=== PATIENT | female | born 1945 | race African-American/Black ===

== ENCOUNTER 2019-06-19 15:32 | Inpatient (IN) ==
[2019-06-19 15:42] VITALS: BMI 29.0
--- NOTE | 2019-06-19 16:00 | DR.SOBA ---
HPI - Time Seen Time seen: 15:50 - Primary Care Physician Primary Care Physician: VERNON - HPI Comment HPI Comment: Patient has has fever and cough x 5 days. PCP called in [facility] and patient went by [facility] to have carrillo virus test done(pending results). Patient was feeling worse so came to get checked. - Complaints Chief Complaint:: PT STATED SHE HAD BEEN HAVING FEVER SHORTNESS OF BREATH. HAS BEEN TESTED FOR COVID 19 AND IS WAITING FOR RESULTS AND AND HAS BEEN TRESTED FOR PNEUMONIA. 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 - Family History History of Family Medical Conditions: Yes Family Medical History: Diabetes Mellitus, Cancer, Coronary Artery Disease, He art Failure, Hypertension - Social History Does patient currently use any type of tobacco product: No Have you used tobacco products in the last 12 months: No Type of Tobacco Use: None Does any household member use tobacco: No Alcohol Use: None Do you use any recreational Drugs:: No Lives With: Alone Lives Where: Home - infectious screening In the last 2 months have you had wt loss of >10#?: NO Have you had fever, night sweats or hemotysis?: No Have you traveled outside the country in the last 6 months?: No Isolation: Standard ROS - Review of Systems Constitutional: Fever Eyes: No Symptoms Reported ENTM: No Symptoms Reported Respiratoy: Dry Cough Cardiovascular: No Symptoms Reported Gastrointestinal/Abdominal: No Symptoms Reported Genitourinary: No Symptoms Reported Neurological: No Symptoms Reported Musculoskeletal: No Symptoms Reported Integumentary: No Symptoms Reported Hematologic/Lymphatic: No Symptoms Reported Endocrine: No Symptoms Reported Psychiatric: No Symptoms Reported All Other Systems: Reviewed and Negative PE - General Limitations: No Limitations General Appearance: Alert - Head Head Exam: Normal Inspection - Eyes Eye exam: Normal Appearance, EOMI - ENT ENT Exam: Normal Exam, Normal Oropharynx - Neck Neck Exam: Normal Inspection, Full ROM, Trachea Midline - Chest Chest Inspection: Normal Inspection - Respiratory Respiratory Exam: Normal Lung Sounds Bilat Respiratory Exam: Bilateral Clear to Auscultation - Cardiovascular Cardiovascular Exam: Tachycardia - Abdominal Exam Abdominal Exam: Normal Inspection, Normal Bowel Sounds - Extremities Extremities Exam: Normal Inspection, Full ROM - Back Back Exam: Normal Inspection - Neurologic Neurological Exam: Alert, Oriented X3, CN II-XII Intact - Psychiatric Psychiatric Exam: Anxious - Skin Skin Exam: Intact, Normal Color - Vital Signs Vitals: Temperature 103.0 F Pulse Rate [Left Radial] 118 Pulse Rate 110 Respiratory Rate 15 Blood Pressure [Left Arm] 164/77 Blood Pressure 140/100 O2 Sat by Pulse Oximetry 97 Course - Treatment Treatment: 172: case discussed with DR. Perea will admit patient to ICU for pneumonia ROR - Labs Reviewed Result Diagrams: 06/19/19 16:20 06/19/19 16:20 - EKG Rate: 110 Tavernier: LAD Rhythm: ST Block: None Hypertrophy: LVH ST: Nonsp - Labs Reviewed Laboratory: WBC 4.0 X10^3/uL (3.6-10.0) 06/19/19 16:20 RBC 6.19 X10^6/uL (3.5-5.4) H 06/19/19 16:20 Hgb 13.9 g/dL (12.0-16.0) 06/19/19 16:20 Hct 43.8 % (36.0-47.0) 06/19/19 16:20 MCV 70.7 fL (80.0-100.0) L 06/19/19 16:20 MCH 22.4 pg (27.0-34.0) L 06/19/19 16:20 MCHC 31.6 g/dL (33.0-35.0) L 06/19/19 16:20 RDW 15.8 % (11.6-16.5) 06/19/19 16:20 Plt Count 80 X10^3/uL (150.0-450.0) L 06/19/19 16:20 Plt Count Comment Decreased (ADEQUATE) A 06/19/19 16:20 MPV 9.4 fL (7.4-11.0) 06/19/19 16:20 Neut % (Auto) 82.1 % (42.0-75.0) H 06/19/19 16:20 Lymph % (Auto) 11.0 % (21.0-51.0) L 06/19/19 16:20 Randall % (Auto) 6.5 % (0.0-13.0) 06/19/19 16:20 Eos % (Auto) 0.0 % (0.9-2.9) L 06/19/19 16:20 Baso % (Auto) 0.4 % (0.2-1.0) 06/19/19 16:20 Neut # (Auto) 3.3 x10^3/uL (2.2-4.8) 06/19/19 16:20 Lymph # (Auto) 0.4 X10^3/uL (1.3-2.9) L 06/19/19 16:20 Randall # (Auto) 0.3 x10^3/uL (0.3-0.8) 06/19/19 16:20 Eos # (Auto) 0.0 x10^3/uL (0.0-0.2) 06/19/19 16:20 Baso # (Auto) 0.0 X10^3/uL (0.0-0.1) 06/19/19 16:20 Absolute Nucleated RBC 0.0 /100WBC 06/19/19 16:20 Giant Platelets Few 06/19/19 16:20 Plt Morphology Comment Abnormal (NORMAL) A 06/19/19 16:20 RBC Morphology Abnormal (NORMAL) A 06/19/19 16:20 Hypochromasia 1+ A 06/19/19 16:20 Microcytosis Slight A 06/19/19 16:20 Sodium 134 mmol/L (136-145) L 06/19/19 16:20 Corrected Sodium 137 mmol/L (136-145) 06/19/19 16:20 Potassium 3.9 mmol/L (3.5-5.1) 06/19/19 16:20 Chloride 98 mmol/L (98-107) 06/19/19 16:20 Carbon Dioxide 25.8 mmol/L (21-32) 06/19/19 16:20 BUN 10 mg/dL (7-18) 06/19/19 16:20 Creatinine 1.19 mg/dL (0.55-1.02) H 06/19/19 16:20 Est GFR (MDRD) Af Amer 57 (>60) L 06/19/19 16:20 Est GFR (MDRD) Non-Af 47 (>60) L 06/19/19 16:20 Glucose 225 mg/dL (65-99) H 06/19/19 16:20 Lactic Acid 3.7 mmol/L (0.4-2.0) H 06/19/19 16:20 Calcium 8.7 mg/dL (8.5-10.1) 06/19/19 16:20 Corrected Calcium TNP 06/19/19 16:20 Total Bilirubin 0.50 mg/dL (0.2-1.0) 06/19/19 16:20 AST 52 Units/L (15-37) H 06/19/19 16:20 ALT 48 Units/L (12-78) 06/19/19 16:20 Alkaline Phosphatase 82 Units/L (46-116) 06/19/19 16:20 Creatine Kinase 88 Units/L (26-192) 06/19/19 16:20 CK-MB (CK-2) < 1.0 ng/mL (0-4.0) 06/19/19 16:20 CK/CKMB % Calc 1.1 % (<4) 06/19/19 16:20 Troponin I < 0.02 ng/mL (0-1.5) 06/19/19 16:20 Total Protein 7.9 g/dL (6.4-8.2) 06/19/19 16:20 Albumin 3.4 g/dL (3.4-5.0) 06/19/19 16:20 Globulin 4.5 g/dL (2.5-4.5) 06/19/19 16:20 Albumin/Globulin Ratio 0.8 Ratio (1.1-2.1) L 06/19/19 16:20 Specimen Type Clean catch urine 06/19/19 16:09 Urine Color Yellow (YELLOW) 06/19/19 16:09 Urine Appearance Hazy (CLEAR) 06/19/19 16:09 Urine pH 5.0 (5.0 - 8.0) 06/19/19 16:09 Ur Specific [place] 1.025 (1.000-1.030) 06/19/19 16:09 Urine Protein 4+ (NEGATIVE) 06/19/19 16:09 Urine Glucose (UA) 3+ (NEGATIVE) 06/19/19 16:09 Urine Ketones 1+ (NEGATIVE) 06/19/19 16:09 Urine Occult Blood 2+ (NEGATIVE) 06/19/19 16:09 Urine Nitrite Negative (NEGATIVE) 06/19/19 16:09 Urine Bilirubin Negative (NEGATIVE) 06/19/19 16:09 Urine Urobilinogen 1+ (NORMAL) 06/19/19 16:09 Ur Leukocyte Esterase 1+ (NEGATIVE) 06/19/19 16:09 Urine RBC 0-2 /HPF (0-3) 06/19/19 16:09 Urine WBC 0-2 /HPF (0-5) 06/19/19 16:09 Ur Squamous Epith Cells Moderate /HPF (NEGATIVE) 06/19/19 16:09 Amorphous Sediment 1+ /HPF (NEGATIVE) 06/19/19 16:09 Urine Bacteria Trace /HPF (NEGATIVE) 06/19/19 16:09 Hyaline Casts Moderate /LPF (NEGATIVE) 06/19/19 16:09 Granular Casts Few /LPF (NEGATIVE) 06/19/19 16:09 Fine Granular Casts Few /LPF (NEGATIVE) 06/19/19 16:09 Urine Mucus Moderate /HPF (NEGATIVE) 06/19/19 16:09 Ur Culture Indicated? No/not indicated 06/19/19 16:09 Opioid - Opioid Risk Tool Total: 0 Total Score Risk Category: Low Risk - Diagnosis Discharge Problem: Pneumonia Qualifiers: Pneumonia type: due to unspecified organism Laterality: bilateral Lung location: lower lobe of lung Qualified Code(s): J18.9 - Pneumonia, unspecified organism - Discharge Plan Condition: Stable - Follow ups/Referrals Follow ups/Referrals: DOULGAS BURLESON [Primary Care Provider] - 3 days - Instructions
[2019-06-19] MEDS ORDERED: XOPENEX 1.25 MG/3 ML NEBULE NEB ONE ×2 (16:03→16:29)
[2019-06-19] MEDS ORDERED: NS 1000 ML 1,000 ML ONE ×2 (16:07→17:47)
[2019-06-19] MEDS ORDERED: NS 500 ML IV 1,000 ML IV ONE (16:10)
[2019-06-19 16:25] LABS: BILIRUBIN,URINE NEGATIVE (NEGATIVE); BLOOD/HEMOGLOBIN,URINE 2+ (NEGATIVE); GLUCOSE, URINE 3+ (NEGATIVE); KETONES,URINE 1+ (NEGATIVE); LEUKOCYTE ESTERASE ,URINE 1+ (NEGATIVE); NITRITES,URINE NEGATIVE (NEGATIVE); PROTEIN,URINE 4+ (NEGATIVE); UROBILINOGEN,URINE 1+ (NORMAL)
[2019-06-19] MEDS ORDERED: MOTRIN TAB 800 MG PO ONE ×2 (16:32→16:37)
[2019-06-19 16:45] LABS: BASOPHILS % (AUTO) 0.4 % (0.2-1.0); HEMATOCRIT 43.8 % (36.0-47.0); HEMOGLOBIN 13.9 g/dL (12.0-16.0); LYMPHOCYTES # (AUTO) 0.4 X10^3/uL (1.3-2.9); MEAN CORPUSCULAR HEMOGLOBIN 22.4 pg (27.0-34.0); MEAN CORPUSCULAR HGB CONC 31.6 g/dL (33.0-35.0); MEAN CORPUSCULAR VOLUME 70.7 fL (80.0-100.0); MEAN PLATELET VOLUME 9.4 fL (7.4-11.0); MONOCYTES # (AUTO) 0.3 x10^3/uL (0.3-0.8); MONOCYTES % (AUTO) 6.5 % (0.0-13.0); NEUTROPHILS # (AUTO) 3.3 x10^3/uL (2.2-4.8); NEUTROPHILS % (AUTO) 82.1 % (42.0-75.0); PLATELET COUNT 80 X10^3/uL (150.0-450.0); RED BLOOD COUNT 6.19 X10^6/uL (3.5-5.4); RED CELL DISTRIBUTION WIDTH 15.8 % (11.6-16.5)
[2019-06-19 16:46] LABS: APPEARANCE,URINE HAZY (CLEAR); COLOR,URINE YELLOW (YELLOW)
[2019-06-19 16:47] LABS: AMORPHOUS SEDIMENT,UR 1+ /HPF (NEGATIVE); BACTERIA,URINE TRACE /HPF (NEGATIVE); FINE GRANULAR CASTS,URINE FEW /LPF (NEGATIVE); GRANULAR CASTS,URINE FEW /LPF (NEGATIVE); HYALINE CASTS, URINE MODERATE /LPF (NEGATIVE); MUCUS,URINE MODERATE /HPF (NEGATIVE); RBC,URINE 0-2 /HPF (0-3); SQUAMOUS EPITHELIAL CELL,UR MODERATE /HPF (NEGATIVE)
--- NOTE | 2019-06-19 16:49 | RAD ---
HISTORYSHORTNESS OF BREATHSTUDYCHEST, 1 VIEWCOMPARISONNoneFINDINGSThe heart is normal. The pulmonary vessels are normal. The lungs are mildly hyperinflated and emphysematous. There is overlying EKG lead artifact. There is overlying breast attenuation artifact partially obscuring the lung bases with questionable hazy bibasilar opacities. No effusion is seen.IMPRESSIONOverlying artifact limiting the exam with questionable hazy bibasilar opacities which could represent early infiltrates vs artifact. Recommend a follow-up PA and lateral chest.Electronically signed by: LINDSEY LAW (Jun 19, 2019 16:48:04)
[2019-06-19 16:51] LABS: GIANT PLATELET FEW; PLATELET MORPHOLOGY COMMENT ABNORMAL (NORMAL)
[2019-06-19 16:52] LABS: HYPOCHROMASIA 1+; MICROCYTOSIS SLIGHT
[2019-06-19 16:59] LABS: BLOOD UREA NITROGEN 10 mg/dL (7-18); CALCIUM 8.7 mg/dL (8.5-10.1); CARBON DIOXIDE 25.8 mmol/L (21-32); CHLORIDE 98 mmol/L (98-107); COR NA(FOR HYPERGLY) 137 mmol/L (136-145); CREATININE 1.19 mg/dL (0.55-1.02); SODIUM 134 mmol/L (136-145); TROPONIN I < 0.02 ng/mL (0-1.5); eGFR NON BLACK RACES 47 (>60)
[2019-06-19 17:03] LABS: ALANINE AMINOTRANSFERASE 48 Units/L (12-78); ALBUMIN 3.4 g/dL (3.4-5.0); ALKALINE PHOSPHATASE 82 Units/L (46-116); ASPARTATE AMINO TRANSFERASE 52 Units/L (15-37); CKMB % 1.1 % (<4); CREATINE KINASE 88 Units/L (26-192); CREATINE KINASE MB < 1.0 ng/mL (0-4.0); TOTAL PROTEIN 7.9 g/dL (6.4-8.2)
--- NOTE | 2019-06-19 17:38 | RAD ---
HISTORYCOUGH, RADIOLOGIST RECOMMENDEDSTEDWINA CALLAWAY/LAT ADULTCOMPARISONApril 2019FINDINGSThe patient is rotated. The cardiac silhouette is unremarkable. Patchy bibasilar opacities are noted suggesting infiltrate/pneumonia however underlying viral illness cannot entirely be excluded. Recommend clinical correlation and continued follow up as indicated for further evaluation.IMPRESSIONPatchy bibasilar airspace disease as discussed above.Electronically signed by: VICKIE LIZ (Jun 19, 2019 17:37:01)
[2019-06-19] MEDS ORDERED: ROCEPHIN VIAL 2 GRAMS 2 G in NS 100 ML IV + SPIKE MINIBAG* 100 ML IV SCH (18:00)
[2019-06-19 18:16] LABS: ABG BASE EXCESS 0.8 mmol/L (-2.0-2.0)
[2019-06-19 18:17] LABS: ABG ALLEN TEST POS
[2019-06-19] MEDS ORDERED: ZITHROMAX INJ 500 MG VIAL 500 MG in NS 250 ML IV 250 ML IV SCH (19:39)
[2019-06-19] MEDS ORDERED: ASCORBIC ACID INJ MULTI-DOSE VIAL IM SCH (19:45)
[2019-06-19] MEDS: NS 1000 ML 1,000 ML IV SCH (19:52)
[2019-06-19] MEDS ORDERED: VITAMIN C ONE (19:55)
--- NOTE | 2019-06-19 19:56 | DR.H&P ---
H&P History & Physical for Day of: H&P Date: 06/20/19 Chief Complaint Chief Complaint: Shortness of breath Allergies Allergies Allergy/AdvReac Type Severity Reaction Status Date / Time codeine Allergy Verified 06/05/18 18:22 hydrocodone Allergy Verified 06/19/19 16:28 levofloxacin [From Levaquin] Allergy Verified 06/19/19 16:33 penicillin G Allergy Verified 06/05/18 18:22 Sulfa (Sulfonamide Allergy Verified 06/05/18 18:22 Antibiotics) [SULFA] tramadol Allergy Verified 06/19/19 16:28 History of Present Illness History of Present Illness: Pt is a 73 yo f pmhx HTN, DMT2, presenting with fever and shortness of breath. She recently traveled to [place], [place] on 06/13 and started feeling symptoms on 06/16. She was seen by her pcp and rx Zithromax but did not pickling solution maker medication yet. Her sx continued to progressively get worse. She did have COVID-19 test done in [place], [place], on 06/16 but has not received results of test. Initial labs/imaging. Wbc 4, Hgb 13.9, Plt 80, LA 3.7, Lipase 445, Glucose 225, Cr 1.19, AST 52, ALT 48, Troponin neg, Ekg Sinus tach, UA not c/w infection, Flu and strep negative. CXR:Patchy bibasilar airspace, ABG:pH 7.47, pO2 88, pCO2 33, HCO3 24, SaO2 97%. Pt was started on pneumonia protocol, supplemental oxygen, RT support, IV steroids, and droplet precautions due to concern during present COVID-19 pandemic. Continue IVF and trend LA. Will get A1c, TSH, repeat CXR in AM, COVID-19 and BloodCx pending. Continue to monitor and follow up labs in the morning. Past Medical History Past Medical History: Diabetes and Hypertension Past Surgical History Surgical History: PARTS RUNNER Surgery Family History Family Medical History: Diabetes Mellitus, Cancer, Coronary Artery Disease, Heart Failure and Hypertension Social History Does patient currently use any type of tobacco product: No Have you used tobacco products in the last 12 months: No Type of Tobacco Use: None Does any household member use tobacco: No Alcohol Use: None Drug Use: None Medications Home Medications: codeine Allergy (Verified 06/05/18 18:22) hydrocodone Allergy (Verified 06/19/19 16:28) levofloxacin [From Levaquin] Allergy (Verified 06/19/19 16:33) penicillin G Allergy (Verified 06/05/18 18:22) Sulfa (Sulfonamide Antibiotics) [SULFA] Allergy (Verified 06/05/18 18:22) tramadol Allergy (Verified 06/19/19 16:28) CONTINUE taking the following medications garlic 1,000 mg PO DAILY 06/19/19 [History] metoprolol succinate 50 mg PO DAILY 06/19/19 [History] Labs Result Diagrams: 06/20/19 04:24 06/20/19 04:24 Labs: Laboratory WBC 4.0 X10^3/uL (3.6-10.0) 06/19/19 16:20 RBC 6.19 X10^6/uL (3.5-5.4) H 06/19/19 16:20 Hgb 13.9 g/dL (12.0-16.0) 06/19/19 16:20 Hct 43.8 % (36.0-47.0) 06/19/19 16:20 MCV 70.7 fL (80.0-100.0) L 06/19/19 16:20 MCH 22.4 pg (27.0-34.0) L 06/19/19 16:20 MCHC 31.6 g/dL (33.0-35.0) L 06/19/19 16:20 RDW 15.8 % (11.6-16.5) 06/19/19 16:20 Plt Count 80 X10^3/uL (150.0-450.0) L 06/19/19 16:20 Plt Count Comment Decreased (ADEQUATE) A 06/19/19 16:20 MPV 9.4 fL (7.4-11.0) 06/19/19 16:20 Neut % (Auto) 82.1 % (42.0-75.0) H 06/19/19 16:20 Lymph % (Auto) 11.0 % (21.0-51.0) L 06/19/19 16:20 [place] % (Auto) 6.5 % (0.0-13.0) 06/19/19 16:20 Eos % (Auto) 0.0 % (0.9-2.9) L 06/19/19 16:20 Baso % (Auto) 0.4 % (0.2-1.0) 06/19/19 16:20 Neut # (Auto) 3.3 x10^3/uL (2.2-4.8) 06/19/19 16:20 Lymph # (Auto) 0.4 X10^3/uL (1.3-2.9) L 06/19/19 16:20 [place] # (Auto) 0.3 x10^3/uL (0.3-0.8) 06/19/19 16:20 Eos # (Auto) 0.0 x10^3/uL (0.0-0.2) 06/19/19 16:20 Baso # (Auto) 0.0 X10^3/uL (0.0-0.1) 06/19/19 16:20 Absolute Nucleated RBC 0.0 /100WBC 06/19/19 16:20 Giant Platelets Few 06/19/19 16:20 Plt Morphology Comment Abnormal (NORMAL) A 06/19/19 16:20 RBC Morphology Abnormal (NORMAL) A 06/19/19 16:20 Hypochromasia 1+ A 06/19/19 16:20 Microcytosis Slight A 06/19/19 16:20 PT 13.0 SECONDS (11.8-14.3) 06/19/19 16:20 INR Target Range - 06/19/19 16:20 INR 1.01 (0.8-1.3) 06/19/19 16:20 Sample Site Rr 06/19/19 18:11 ABG pH 7.470 (7.35-7.45) H 06/19/19 18:11 ABG pCO2 33.0 mmHg (35.0-45.0) L 06/19/19 18:11 ABG pO2 88.0 mmHg (80.0-100.0) 06/19/19 18:11 ABG HCO3 24.0 mmol/L (22-26) 06/19/19 18:11 ABG O2 Saturation 97.0 % (90-100) 06/19/19 18:11 ABG Base Excess 0.8 mmol/L (-2.0-2.0) 06/19/19 18:11 Albaro Test Pos 06/19/19 18:11 A-a Gradient 70.0 mmHg 06/19/19 18:11 FiO2 28.0 06/19/19 18:11 Blood Gas Comments Carolyne well gmb 06/19/19 18:11 Sodium 134 mmol/L (136-145) L 06/19/19 16:20 Corrected Sodium 137 mmol/L (136-145) 06/19/19 16:20 Potassium 3.9 mmol/L (3.5-5.1) 06/19/19 16:20 Chloride 98 mmol/L (98-107) 06/19/19 16:20 Carbon Dioxide 25.8 mmol/L (21-32) 06/19/19 16:20 BUN 10 mg/dL (7-18) 06/19/19 16:20 Creatinine 1.19 mg/dL (0.55-1.02) H 06/19/19 16:20 Est GFR (MDRD) Af Amer 57 (>60) L 06/19/19 16:20 Est GFR (MDRD) Non-Af 47 (>60) L 06/19/19 16:20 Glucose 225 mg/dL (65-99) H 06/19/19 16:20 Lactic Acid 3.7 mmol/L (0.4-2.0) H 06/19/19 16:20 Calcium 8.7 mg/dL (8.5-10.1) 06/19/19 16:20 Corrected Calcium TNP 06/19/19 16:20 Total Bilirubin 0.50 mg/dL (0.2-1.0) 06/19/19 16:20 AST 52 Units/L (15-37) H 06/19/19 16:20 ALT 48 Units/L (12-78) 06/19/19 16:20 Alkaline Phosphatase 82 Units/L (46-116) 06/19/19 16:20 Creatine Kinase 88 Units/L (26-192) 06/19/19 16:20 CK-MB (CK-2) < 1.0 ng/mL (0-4.0) 06/19/19 16:20 CK/CKMB % Calc 1.1 % (<4) 06/19/19 16:20 Troponin I < 0.02 ng/mL (0-1.5) 06/19/19 16:20 Total Protein 7.9 g/dL (6.4-8.2) 06/19/19 16:20 Albumin 3.4 g/dL (3.4-5.0) 06/19/19 16:20 Globulin 4.5 g/dL (2.5-4.5) 06/19/19 16:20 Albumin/Globulin Ratio 0.8 Ratio (1.1-2.1) L 06/19/19 16:20 Lipase 445 Units/L (73-393) H 06/19/19 16:20 Specimen Type Clean catch urine 06/19/19 16:09 Urine Color Yellow (YELLOW) 06/19/19 16:09 Urine Appearance Hazy (CLEAR) 06/19/19 16:09 Urine pH 5.0 (5.0 - 8.0) 06/19/19 16:09 Ur Specific [place] 1.025 (1.000-1.030) 06/19/19 16:09 Urine Protein 4+ (NEGATIVE) 06/19/19 16:09 Urine Glucose (UA) 3+ (NEGATIVE) 06/19/19 16:09 Urine Ketones 1+ (NEGATIVE) 06/19/19 16:09 Urine Occult Blood 2+ (NEGATIVE) 06/19/19 16:09 Urine Nitrite Negative (NEGATIVE) 06/19/19 16:09 Urine Bilirubin Negative (NEGATIVE) 06/19/19 16:09 Urine Urobilinogen 1+ (NORMAL) 06/19/19 16:09 Ur Leukocyte Esterase 1+ (NEGATIVE) 06/19/19 16:09 Urine RBC 0-2 /HPF (0-3) 06/19/19 16:09 Urine WBC 0-2 /HPF (0-5) 06/19/19 16:09 Ur Squamous Epith Cells Moderate /HPF (NEGATIVE) 06/19/19 16:09 Amorphous Sediment 1+ /HPF (NEGATIVE) 06/19/19 16:09 Urine Bacteria Trace /HPF (NEGATIVE) 06/19/19 16:09 Hyaline Casts Moderate /LPF (NEGATIVE) 06/19/19 16:09 Granular Casts Few /LPF (NEGATIVE) 06/19/19 16:09 Fine Granular Casts Few /LPF (NEGATIVE) 06/19/19 16:09 Urine Mucus Moderate /HPF (NEGATIVE) 06/19/19 16:09 Ur Culture Indicated? No/not indicated 06/19/19 16:09 Review of Systems Constitutional: Fever, Chills and Weakness Eyes: No Symptoms Reported ENT: No Symptoms Reported Respiratory: Cough and Shortness of Breath Cardiovascular: No Symptoms Reported Gastrointestinal: No Symptoms Reported Genitourinary: No Symptoms Reported Musculoskeletal: No Symptoms Reported Skin: No Symptoms Reported Neurological: No Symptoms Reported Physical Exam Vital Signs: Temperature 103.0 F Pulse Rate [Left Radial] 118 Pulse Rate 113 Respiratory Rate 21 Blood Pressure [Left Arm] 164/77 Blood Pressure 143/78 O2 Sat by Pulse Oximetry 97 Oriented: Normal Eyes: Normal Ear: Normal Nose: Normal Throat: Normal Respiratory: Rales Throughout Cardiovascular: Tachycardia Auscultation: Bowel Sounds: Normal Palpation: Normal Tenderness: Normal Skin: Normal Psychiatric: Normal Speech Pattern: Clear Assessment/Plan (1) Bilateral pneumonia: Status: Acute Plan: Pneumonia protocol. Continue abx IV Zithromax (06/18) COVID pending (2) Lactic acidosis: Status: Acute Plan: continue IVF (3) Hypertension: Status: Acute Plan: Continue antihypertensives. (4) Diabetes mellitus: Status: Acute Plan: SSI (5) VEL (acute kidney injury): Status: Acute (6) Hypomagnesemia: Status: Acute Review H&P Reviewed: Yes Patient was examined?: Yes
[2019-06-19] MEDS: SNACK - Diabetic Appropriate PO SCH (20:16)
[2019-06-19 20:55] LABS: HEMOGLOBIN A1C 7.5 %
[2019-06-19 21:06] LABS: TSH (3RD GENERATION) 1.745 uIU/mL (0.358-3.74)
[2019-06-19] MEDS ORDERED: VITAMIN C PO ONE (21:14)
[2019-06-19 21:45] LABS: MYCOPLASMA PNEUMONIAE IGM AB NEGATIVE (NEGATIVE)
[2019-06-20] MEDS: NS 1000 ML 1,000 ML IV SCH ×3 (04:19→20:09)
[2019-06-20 04:57] LABS: BASOPHILS % (AUTO) 0.5 % (0.2-1.0); EOSINOPHILS % (AUTO) 0.1 % (0.9-2.9); HEMATOCRIT 37.5 % (36.0-47.0); LYMPHOCYTES # (AUTO) 0.8 X10^3/uL (1.3-2.9); MEAN CORPUSCULAR HEMOGLOBIN 22.6 pg (27.0-34.0); MEAN CORPUSCULAR HGB CONC 31.7 g/dL (33.0-35.0); MEAN CORPUSCULAR VOLUME 71.4 fL (80.0-100.0); MEAN PLATELET VOLUME 9.8 fL (7.4-11.0); MONOCYTES # (AUTO) 0.2 x10^3/uL (0.3-0.8); MONOCYTES % (AUTO) 7.1 % (0.0-13.0); NEUTROPHILS # (AUTO) 1.9 x10^3/uL (2.2-4.8); NEUTROPHILS % (AUTO) 64.3 % (42.0-75.0); PLATELET COUNT 61 X10^3/uL (150.0-450.0); RED BLOOD COUNT 5.25 X10^6/uL (3.5-5.4); WHITE BLOOD COUNT 2.9 X10^3/uL (3.6-10.0)
[2019-06-20 05:04] LABS: ALANINE AMINOTRANSFERASE 35 Units/L (12-78); ALBUMIN 2.6 g/dL (3.4-5.0); ALKALINE PHOSPHATASE 61 Units/L (46-116); ASPARTATE AMINO TRANSFERASE 36 Units/L (15-37); BLOOD UREA NITROGEN 6 mg/dL (7-18); CALCIUM 7.8 mg/dL (8.5-10.1); CARBON DIOXIDE 30.3 mmol/L (21-32); CHLORIDE 104 mmol/L (98-107); COR CA(FOR HYPOALB) 8.9 mg/dL (8.5-10.1); COR NA(FOR HYPERGLY) 140 mmol/L (136-145); CREATININE 0.88 mg/dL (0.55-1.02); MAGNESIUM 1.6 mg/dL (1.7-2.9); PHOSPHORUS 2.6 mg/dL (2.6-4.7); SODIUM 140 mmol/L (136-145); TOTAL PROTEIN 6.2 g/dL (6.4-8.2); eGFR NON BLACK RACES > 60 (>60)
[2019-06-20 05:30] LABS: HEMOGLOBIN 11.9 g/dL (12.0-16.0)
[2019-06-20 05:31] LABS: HYPOCHROMASIA 1+; PLATELET MORPHOLOGY COMMENT NORMAL (NORMAL)
[2019-06-20 05:32] LABS: MICROCYTOSIS SLIGHT
--- NOTE | 2019-06-20 06:05 | RAD ---
HISTORYFollow-up lung infiltratesSTUDYCHEST, 1 LABENNDYNUZIOM94/02/2020FINDINGSHeart is upper limits normal in size. No congestive heart failure is noted. Peripheral infiltrates are present in the upper and lower lobes bilaterally increasing when compared with prior examinations. No pleural effusions are identified. The bony thorax is unremarkable.IMPRESSIONIncreasing bilateral upper and lower lobe peripheral infiltratesElectronically signed by: MOHAMUD JONES (Jun 20, 2019 06:03:41)
[2019-06-20 07:58] LABS: AMYLASE 38 Units/L (25-115); LIPASE 268 Units/L (73-393)
[2019-06-20] MEDS: AMARYL TAB 4 MG PO SCH (09:44)
[2019-06-20] MEDS: SOLU-Medrol 125 MG VIAL IVP SCH ×3 (09:47→21:05)
[2019-06-20] MEDS: TOPROL XL PO SCH (09:47)
[2019-06-20] MEDS: MAGNESIUM SULFATE 1 GRAM/100 mL PREMIX 1 GM/100 ML BAG IV PRN ×2 (11:56→14:15)
[2019-06-20] MEDS ORDERED: ASCORBIC ACID INJ MULTI-DOSE VIAL IV SCH (17:00)
[2019-06-20] MEDS: HumuLIN R SUBCUT PRN ×2 (17:00→21:35)
[2019-06-20] MEDS ORDERED: ZINC SULFATE ONE (17:30)
[2019-06-20] MEDS ORDERED: NS 100 ML IV 100 ML IV ONE (18:02)
[2019-06-20] MEDS: NS 100 ML IV 100 ML with ASCORBIC ACID INJ MULTI-DOSE VIAL 1,500 MG IV SCH ×2 (18:21)
[2019-06-20] MEDS: PLAQUENIL PO SCH ×2 (18:22→21:04)
[2019-06-20] MEDS: ZINC SULFATE PO SCH ×2 (18:22→21:04)
[2019-06-20] MEDS: THIAMINE HCL INJ IV SCH (20:08)
[2019-06-20] MEDS: SNACK - Diabetic Appropriate PO SCH (20:09)
[2019-06-20] MEDS: ZITHROMAX INJ 500 MG VIAL 250 MG in NS 250 ML IV 250 ML IV SCH (22:00)
[2019-06-21] MEDS: NS 100 ML IV 100 ML with ASCORBIC ACID INJ MULTI-DOSE VIAL 1,500 MG IV SCH ×8 (00:44→18:03)
[2019-06-21] MEDS ORDERED: NS 100 ML IV 100 ML IV ONE (03:34)
[2019-06-21] MEDS: NS 1000 ML 1,000 ML IV SCH ×3 (03:41→18:03)
[2019-06-21] MEDS: THIAMINE HCL INJ IV SCH ×2 (04:07→16:04)
[2019-06-21] MEDS: SOLU-Medrol 125 MG VIAL IVP SCH ×3 (05:02→21:11)
--- NOTE | 2019-06-21 05:40 | RAD ---
STUDY: CHEST, 1 VIEWCOMPARISON: June 20, 2019HISTORY: PNEUMONIAFINDINGS:Scattered areas of alveolar airspace disease are seen predominantly involving the subpleural surface of the right and left lung which is not significantly changed from the prior study. This appears worse on the left compared to the right. Cardiomediastinal contour is stable. No pleural effusion or pneumothorax is seen.IMPRESSION:There is no significant change from prior study.Electronically signed by: Adis Jeffrey (Jun 21, 2019 05:39:31)
[2019-06-21] MEDS: PLAQUENIL PO SCH ×3 (05:45→21:10)
[2019-06-21 06:01] LABS: BASOPHILS % (AUTO) 0.3 % (0.2-1.0); HEMATOCRIT 40.1 % (36.0-47.0); HEMOGLOBIN 12.9 g/dL (12.0-16.0); LYMPHOCYTES # (AUTO) 0.6 X10^3/uL (1.3-2.9); LYMPHOCYTES % (AUTO) 18.6 % (21.0-51.0); MEAN CORPUSCULAR HEMOGLOBIN 22.5 pg (27.0-34.0); MEAN CORPUSCULAR HGB CONC 32.1 g/dL (33.0-35.0); MEAN CORPUSCULAR VOLUME 70.1 fL (80.0-100.0); MEAN PLATELET VOLUME 9.4 fL (7.4-11.0); MONOCYTES # (AUTO) 0.2 x10^3/uL (0.3-0.8); MONOCYTES % (AUTO) 5.7 % (0.0-13.0); NEUTROPHILS # (AUTO) 2.2 x10^3/uL (2.2-4.8); NEUTROPHILS % (AUTO) 75.4 % (42.0-75.0); PLATELET COUNT 85 X10^3/uL (150.0-450.0); RED BLOOD COUNT 5.72 X10^6/uL (3.5-5.4); RED CELL DISTRIBUTION WIDTH 15.6 % (11.6-16.5)
[2019-06-21 06:14] LABS: ALANINE AMINOTRANSFERASE 41 Units/L (12-78); ALBUMIN 2.7 g/dL (3.4-5.0); ALKALINE PHOSPHATASE 77 Units/L (46-116); ASPARTATE AMINO TRANSFERASE 44 Units/L (15-37); BLOOD UREA NITROGEN 10 mg/dL (7-18); CALCIUM 8.2 mg/dL (8.5-10.1); CARBON DIOXIDE 25.8 mmol/L (21-32); CHLORIDE 102 mmol/L (98-107); COR CA(FOR HYPOALB) 9.2 mg/dL (8.5-10.1); COR NA(FOR HYPERGLY) 140 mmol/L (136-145); CREATININE 0.87 mg/dL (0.55-1.02); MAGNESIUM 2.1 mg/dL (1.7-2.9); PHOSPHORUS 2.6 mg/dL (2.6-4.7); SODIUM 137 mmol/L (136-145); TOTAL PROTEIN 6.9 g/dL (6.4-8.2); eGFR NON BLACK RACES > 60 (>60)
[2019-06-21 06:28] LABS: HYPOCHROMASIA 1+; PLATELET MORPHOLOGY COMMENT NORMAL (NORMAL)
[2019-06-21 06:29] LABS: MICROCYTOSIS SLIGHT
[2019-06-21] MEDS: HumuLIN R SUBCUT PRN ×4 (06:32→21:12)
[2019-06-21] MEDS: AMARYL TAB 4 MG PO SCH (08:37)
[2019-06-21] MEDS: TOPROL XL PO SCH (08:37)
[2019-06-21] MEDS: ZINC SULFATE PO SCH ×2 (08:38→21:05)
--- NOTE | 2019-06-21 10:46 | PCM.PROG ---
Progress Note Progress Note for Day of Date of Exam: 06/21/19 Subjective Subjective: Pt is a 73 yo f pmhx HTN, DMT2, admitted for pneumonia. Today she states that she is feeling better than yesterday. CXR this morning did not show any changes from prior, however she has required less supplemental O2, now on 1L nc. She was started on Zithromax, Plaquenil, IV Solumedrol, Zinc, Vit C, thiamine yesterday. IVF decreased to KVO. COVID-19 and BloodCx results are pending. Today Wbc 3, Hgb 12.9, Plt 85, LA Glucose 238, Cr 0.87, AST 44, ALT 41. Continue to monitor and follow up labs in the morning. Past Medical Family Social History Past Med/Fam/Surg Hx: No changes since H&P Allergies: Allergies codeine Allergy (Verified 06/05/18 18:22) hydrocodone Allergy (Verified 06/19/19 16:28) levofloxacin [From Levaquin] Allergy (Verified 06/19/19 16:33) penicillin G Allergy (Verified 06/05/18 18:22) Sulfa (Sulfonamide Antibiotics) [SULFA] Allergy (Verified 06/05/18 18:22) tramadol Allergy (Verified 06/19/19 16:28) Review of Systems ROS: No change since H&P Vital Signs and I&O's Vital Signs: Temperature 98.9 F Pulse Rate [Left Radial] 118 Pulse Rate 85 Respiratory Rate 23 Blood Pressure [Left Arm] 164/77 Blood Pressure 148/79 O2 Sat by Pulse Oximetry 95 Intake and Output: Intake & Output 06/18/19 06/19/19 06/20/19 06/21/19 23:59 23:59 23:59 23:59 Intake Total 883 / 883 3904 / 3904 937 / 937 Output Total 500 / 500 3600 / 3600 550 / 550 Balance 383 / 383 304 / 304 387 / 387 Physical Exam Oriented: Normal Eyes: Normal Ear: Normal Nose: Normal Throat: Normal Respiratory: Rales (improved, minimal ) Cardiovascular: Normal : Normal Auscultation: Bowel Sounds: Normal Tenderness: Normal Skin: Normal Musculoskeletal: Normal Psychiatric: Normal Speech Pattern: Clear and Appropriate Laboratory and Diagnostics Result Diagrams: 06/21/19 05:09 06/21/19 05:09 Labs: Laboratory WBC 3.0 X10^3/uL (3.6-10.0) L 06/21/19 05:09 RBC 5.72 X10^6/uL (3.5-5.4) H 06/21/19 05:09 Hgb 12.9 g/dL (12.0-16.0) 06/21/19 05:09 Hct 40.1 % (36.0-47.0) 06/21/19 05:09 MCV 70.1 fL (80.0-100.0) L 06/21/19 05:09 MCH 22.5 pg (27.0-34.0) L 06/21/19 05:09 MCHC 32.1 g/dL (33.0-35.0) L 06/21/19 05:09 RDW 15.6 % (11.6-16.5) 06/21/19 05:09 Plt Count 85 X10^3/uL (150.0-450.0) L 06/21/19 05:09 Plt Count Comment Decreased (ADEQUATE) A 06/21/19 05:09 MPV 9.4 fL (7.4-11.0) 06/21/19 05:09 Neut % (Auto) 75.4 % (42.0-75.0) H 06/21/19 05:09 Lymph % (Auto) 18.6 % (21.0-51.0) L 06/21/19 05:09 [place] % (Auto) 5.7 % (0.0-13.0) 06/21/19 05:09 Eos % (Auto) 0.0 % (0.9-2.9) L 06/21/19 05:09 Baso % (Auto) 0.3 % (0.2-1.0) 06/21/19 05:09 Neut # (Auto) 2.2 x10^3/uL (2.2-4.8) 06/21/19 05:09 Lymph # (Auto) 0.6 X10^3/uL (1.3-2.9) L 06/21/19 05:09 [place] # (Auto) 0.2 x10^3/uL (0.3-0.8) L 06/21/19 05:09 Eos # (Auto) 0.0 x10^3/uL (0.0-0.2) 06/21/19 05:09 Baso # (Auto) 0.0 X10^3/uL (0.0-0.1) 06/21/19 05:09 Absolute Nucleated RBC 0.0 /100WBC 06/21/19 05:09 Giant Platelets Few 06/19/19 16:20 Plt Morphology Comment Normal (NORMAL) 06/21/19 05:09 RBC Morphology Abnormal (NORMAL) A 06/21/19 05:09 Hypochromasia 1+ A 06/21/19 05:09 Microcytosis Slight A 06/21/19 05:09 PT 13.0 SECONDS (11.8-14.3) 06/19/19 16:20 INR Target Range - 06/19/19 16:20 INR 1.01 (0.8-1.3) 06/19/19 16:20 Sample Site Rr 06/19/19 18:11 ABG pH 7.470 (7.35-7.45) H 06/19/19 18:11 ABG pCO2 33.0 mmHg (35.0-45.0) L 06/19/19 18:11 ABG pO2 88.0 mmHg (80.0-100.0) 06/19/19 18:11 ABG HCO3 24.0 mmol/L (22-26) 06/19/19 18:11 ABG O2 Saturation 97.0 % (90-100) 06/19/19 18:11 ABG Base Excess 0.8 mmol/L (-2.0-2.0) 06/19/19 18:11 Albaro Test Pos 06/19/19 18:11 A-a Gradient 70.0 mmHg 06/19/19 18:11 FiO2 28.0 06/19/19 18:11 Blood Gas Comments Carolyne well gmb 06/19/19 18:11 Sodium 137 mmol/L (136-145) 06/21/19 05:09 Corrected Sodium 140 mmol/L (136-145) 06/21/19 05:09 Potassium 3.9 mmol/L (3.5-5.1) 06/21/19 05:09 Chloride 102 mmol/L (98-107) 06/21/19 05:09 Carbon Dioxide 25.8 mmol/L (21-32) 06/21/19 05:09 BUN 10 mg/dL (7-18) 06/21/19 05:09 Creatinine 0.87 mg/dL (0.55-1.02) 06/21/19 05:09 Est GFR (MDRD) Af Amer > 60 (>60) 06/21/19 05:09 Est GFR (MDRD) Non-Af > 60 (>60) 06/21/19 05:09 Glucose 238 mg/dL (65-99) H 06/21/19 05:09 Hemoglobin A1c 7.5 % 06/19/19 16:20 Lactic Acid 1.3 mmol/L (0.4-2.0) 06/19/19 22:38 Calcium 8.2 mg/dL (8.5-10.1) L 06/21/19 05:09 Corrected Calcium 9.2 mg/dL (8.5-10.1) 06/21/19 05:09 Phosphorus 2.6 mg/dL (2.6-4.7) 06/21/19 05:09 Magnesium 2.1 mg/dL (1.7-2.9) 06/21/19 05:09 Total Bilirubin 0.40 mg/dL (0.2-1.0) 06/21/19 05:09 AST 44 Units/L (15-37) H 06/21/19 05:09 ALT 41 Units/L (12-78) 06/21/19 05:09 Alkaline Phosphatase 77 Units/L (46-116) 06/21/19 05:09 Creatine Kinase 88 Units/L (26-192) 06/19/19 16:20 CK-MB (CK-2) < 1.0 ng/mL (0-4.0) 06/19/19 16:20 CK/CKMB % Calc 1.1 % (<4) 06/19/19 16:20 Troponin I < 0.02 ng/mL (0-1.5) 06/19/19 16:20 C-Reactive Protein 125.80 mg/L (0-3.0) H 06/21/19 05:09 Total Protein 6.9 g/dL (6.4-8.2) 06/21/19 05:09 Albumin 2.7 g/dL (3.4-5.0) L 06/21/19 05:09 Globulin 4.2 g/dL (2.5-4.5) 06/21/19 05:09 Albumin/Globulin Ratio 0.6 Ratio (1.1-2.1) L 06/21/19 05:09 Amylase 38 Units/L (25-115) 06/20/19 04:24 Lipase 268 Units/L (73-393) 06/20/19 04:24 TSH 3rd Generation 1.745 uIU/mL (0.358-3.74) 06/19/19 16:20 Specimen Type Clean catch urine 06/19/19 16:09 Urine Color Yellow (YELLOW) 06/19/19 16:09 Urine Appearance Hazy (CLEAR) 06/19/19 16:09 Urine pH 5.0 (5.0 - 8.0) 06/19/19 16:09 Ur Specific [place] 1.025 (1.000-1.030) 06/19/19 16:09 Urine Protein 4+ (NEGATIVE) 06/19/19 16:09 Urine Glucose (UA) 3+ (NEGATIVE) 06/19/19 16:09 Urine Ketones 1+ (NEGATIVE) 06/19/19 16:09 Urine Occult Blood 2+ (NEGATIVE) 06/19/19 16:09 Urine Nitrite Negative (NEGATIVE) 06/19/19 16:09 Urine Bilirubin Negative (NEGATIVE) 06/19/19 16:09 Urine Urobilinogen 1+ (NORMAL) 06/19/19 16:09 Ur Leukocyte Esterase 1+ (NEGATIVE) 06/19/19 16:09 Urine RBC 0-2 /HPF (0-3) 06/19/19 16:09 Urine WBC 0-2 /HPF (0-5) 06/19/19 16:09 Ur Squamous Epith Cells Moderate /HPF (NEGATIVE) 06/19/19 16:09 Amorphous Sediment 1+ /HPF (NEGATIVE) 06/19/19 16:09 Urine Bacteria Trace /HPF (NEGATIVE) 06/19/19 16:09 Hyaline Casts Moderate /LPF (NEGATIVE) 06/19/19 16:09 Granular Casts Few /LPF (NEGATIVE) 06/19/19 16:09 Fine Granular Casts Few /LPF (NEGATIVE) 06/19/19 16:09 Urine Mucus Moderate /HPF (NEGATIVE) 06/19/19 16:09 Ur Culture Indicated? No/not indicated 06/19/19 16:09 Influenza Type A (PCR) Negative (NEGATIVE) 06/19/19 23:05 Influenza Type B (PCR) Negative (NEGATIVE) 06/19/19 23:05 Mycoplasma pneumon IgG Negative (NEGATIVE) 06/19/19 16:30 Plan (1) Bilateral pneumonia: Status: Acute Plan: Pneumonia protocol. COVID pending (2) Lactic acidosis: Status: Acute Plan: Resolved (3) Hypertension: Status: Inactive Plan: Continue antihypertensives. (4) Diabetes mellitus: Status: Acute Plan: SSI (5) VEL (acute kidney injury): Status: Acute Plan: Resolved (6) Hypomagnesemia: Status: Acute Plan: Per protocol
[2019-06-21] MEDS: TYLENOL 325 MG TAB PO PRN (12:29)
[2019-06-21] MEDS: SNACK - Diabetic Appropriate PO SCH (21:00)
[2019-06-21] MEDS: ZITHROMAX INJ 500 MG VIAL 250 MG in NS 250 ML IV 250 ML IV SCH (21:05)
[2019-06-21] MEDS: ZESTRIL TAB 10 MG PO SCH (23:44)
[2019-06-22] MEDS: NS 1000 ML 1,000 ML IV SCH ×3 (04:25→18:22)
[2019-06-22] MEDS: THIAMINE HCL INJ IV SCH ×2 (04:25→17:15)
[2019-06-22 06:34] LABS: BASOPHILS % (AUTO) 0 % (0.2-1.0); HEMATOCRIT 41.1 % (36.0-47.0); HEMOGLOBIN 13.5 g/dL (12.0-16.0); LYMPHOCYTES # (AUTO) 0.4 X10^3/uL (1.3-2.9); LYMPHOCYTES % (AUTO) 4.1 % (21.0-51.0); MEAN CORPUSCULAR HEMOGLOBIN 22.9 pg (27.0-34.0); MEAN CORPUSCULAR HGB CONC 32.8 g/dL (33.0-35.0); MEAN CORPUSCULAR VOLUME 69.8 fL (80.0-100.0); MEAN PLATELET VOLUME 10.5 fL (7.4-11.0); MONOCYTES # (AUTO) 0.5 x10^3/uL (0.3-0.8); MONOCYTES % (AUTO) 5.3 % (0.0-13.0); NEUTROPHILS # (AUTO) 7.9 x10^3/uL (2.2-4.8); NEUTROPHILS % (AUTO) 90.6 % (42.0-75.0); PLATELET COUNT 108 X10^3/uL (150.0-450.0); RED BLOOD COUNT 5.89 X10^6/uL (3.5-5.4); RED CELL DISTRIBUTION WIDTH 15.6 % (11.6-16.5); WHITE BLOOD COUNT 8.8 X10^3/uL (3.6-10.0)
[2019-06-22 06:45] LABS: ALANINE AMINOTRANSFERASE 44 Units/L (12-78); ALBUMIN 2.6 g/dL (3.4-5.0); ALKALINE PHOSPHATASE 79 Units/L (46-116); ASPARTATE AMINO TRANSFERASE 49 Units/L (15-37); BLOOD UREA NITROGEN 14 mg/dL (7-18); CALCIUM 8.3 mg/dL (8.5-10.1); CARBON DIOXIDE 27.1 mmol/L (21-32); CHLORIDE 102 mmol/L (98-107); COR CA(FOR HYPOALB) 9.4 mg/dL (8.5-10.1); COR NA(FOR HYPERGLY) 141 mmol/L (136-145); CREATININE 0.93 mg/dL (0.55-1.02); MAGNESIUM 1.9 mg/dL (1.7-2.9); PHOSPHORUS 2.3 mg/dL (2.6-4.7); SODIUM 137 mmol/L (136-145); TOTAL PROTEIN 6.7 g/dL (6.4-8.2); eGFR NON BLACK RACES > 60 (>60)
[2019-06-22] MEDS: PLAQUENIL PO SCH ×3 (06:49→21:05)
[2019-06-22] MEDS: SOLU-Medrol 125 MG VIAL IVP SCH ×3 (06:50→21:05)
[2019-06-22 06:52] LABS: BAND NEUTROPHILS % 3 % (0-10); HYPOCHROMASIA 1+; MICROCYTOSIS 1+; PLATELET MORPHOLOGY COMMENT NORMAL (NORMAL)
[2019-06-22] MEDS: HumuLIN R SUBCUT PRN ×4 (07:10→21:10)
--- NOTE | 2019-06-22 07:31 | RAD ---
HISTORYPNEUMONIASTUDYCHEST x-ray, 1 VIEWCOMPARISONX-ray 06/21/2019FINDINGSWorsening bilateral lung infiltrates are seen peripherally. Heart is normal in size. No pneumothorax or pleural effusion is seen.IMPRESSIONWorsening peripheral lung infiltrates.Electronically signed by: Trevor Tracey (Jun 22, 2019 07:29:35)
[2019-06-22] MEDS: AMARYL TAB 4 MG PO SCH (07:45)
[2019-06-22] MEDS: ZINC SULFATE PO SCH ×2 (08:01→21:05)
[2019-06-22] MEDS: VITAMIN C PO SCH (08:02)
[2019-06-22] MEDS: ZESTRIL TAB 10 MG PO SCH ×2 (08:02→08:17)
[2019-06-22] MEDS: TOPROL XL PO SCH (08:02)
[2019-06-22] MEDS ORDERED: COLACE CAP 100 MG PO PRN (11:08)
--- NOTE | 2019-06-22 11:12 | PCM.PROG ---
Progress Note Progress Note for Day of Date of Exam: 06/22/19 Subjective Subjective: Pt is a 73 yo f pmhx HTN, DMT2, admitted COVID-19 pneumonia that was confirmed today. She reports not feeling as well as she did yesterday. Her CXR did show worsening peripheral lung infiltrates. She is on 3L supplemental O2. Continuing Zithromax, Plaquenil, IV Solumedrol, Zinc, Vit C, thiamine. IVF at [facility]. BloodCx + coagulase negative staph, will repeat today. Labs CRP: 125>53, Wbc 8.8, Hgb 13.5, Plt 108, Gluc 258, Cr 0.93, AST 49, ALT 44. BP elevated, will start on amlodipine. Colace for constipation. Albuterol inhaler for shortness of breath. Continue to monitor and follow up labs in the morning. Past Medical Family Social History Past Med/Fam/Surg Hx: No changes since H&P Allergies: Allergies codeine Allergy (Verified 06/05/18 18:22) hydrocodone Allergy (Verified 06/19/19 16:28) levofloxacin [From Levaquin] Allergy (Verified 06/19/19 16:33) penicillin G Allergy (Verified 06/05/18 18:22) Sulfa (Sulfonamide Antibiotics) [SULFA] Allergy (Verified 06/05/18 18:22) tramadol Allergy (Verified 06/19/19 16:28) Review of Systems ROS: No change since H&P Vital Signs and I&O's Vital Signs: Temperature 97.9 F Pulse Rate [Left Radial] 118 Pulse Rate 100 Respiratory Rate 19 Blood Pressure [Left Arm] 164/77 Blood Pressure 183/94 O2 Sat by Pulse Oximetry 95 Intake and Output: Intake & Output 06/19/19 06/20/19 06/21/19 06/22/19 23:59 23:59 23:59 23:59 Intake Total 883 / 883 3904 / 3904 2919 / 2919 387 / 387 Output Total 500 / 500 3600 / 3600 2150 / 2150 Balance 383 / 383 304 / 304 769 / 769 387 / 387 Physical Exam Oriented: Normal Eyes: Normal Ear: Normal Nose: Normal Throat: Normal Respiratory: Rales (improved, minimal ) Cardiovascular: Normal : Normal Auscultation: Bowel Sounds: Normal Tenderness: Normal Skin: Normal Musculoskeletal: Normal Psychiatric: Normal Speech Pattern: Clear and Appropriate Laboratory and Diagnostics Result Diagrams: 06/22/19 05:42 06/22/19 05:42 Labs: 06/19/19 16:20 Blood Blood Culture - Preliminary Laboratory WBC 8.8 X10^3/uL (3.6-10.0) 06/22/19 05:42 RBC 5.89 X10^6/uL (3.5-5.4) H 06/22/19 05:42 Hgb 13.5 g/dL (12.0-16.0) 06/22/19 05:42 Hct 41.1 % (36.0-47.0) 06/22/19 05:42 MCV 69.8 fL (80.0-100.0) L 06/22/19 05:42 MCH 22.9 pg (27.0-34.0) L 06/22/19 05:42 MCHC 32.8 g/dL (33.0-35.0) L 06/22/19 05:42 RDW 15.6 % (11.6-16.5) 06/22/19 05:42 Plt Count 108 X10^3/uL (150.0-450.0) L 06/22/19 05:42 Plt Count Comment Decreased (ADEQUATE) A 06/22/19 05:42 MPV 10.5 fL (7.4-11.0) 06/22/19 05:42 Neut % (Auto) 90.6 % (42.0-75.0) H 06/22/19 05:42 Lymph % (Auto) 4.1 % (21.0-51.0) L 06/22/19 05:42 [place] % (Auto) 5.3 % (0.0-13.0) 06/22/19 05:42 Eos % (Auto) 0.0 % (0.9-2.9) L 06/22/19 05:42 Baso % (Auto) 0 % (0.2-1.0) L 06/22/19 05:42 Neut # (Auto) 7.9 x10^3/uL (2.2-4.8) H 06/22/19 05:42 Lymph # (Auto) 0.4 X10^3/uL (1.3-2.9) L 06/22/19 05:42 [place] # (Auto) 0.5 x10^3/uL (0.3-0.8) 06/22/19 05:42 Eos # (Auto) 0.0 x10^3/uL (0.0-0.2) 06/22/19 05:42 Baso # (Auto) 0.0 X10^3/uL (0.0-0.1) 06/22/19 05:42 Absolute Nucleated RBC 0.0 /100WBC 06/22/19 05:42 Total Counted 100 06/22/19 05:42 Neutrophils % (Manual) 86 % (39-76) H 06/22/19 05:42 Band Neutrophils % 3 % (0-10) 06/22/19 05:42 Lymphocytes % (Manual) 7 % (13-43) L 06/22/19 05:42 Monocytes % (Manual) 4 % (4-9) 06/22/19 05:42 Giant Platelets Few 06/19/19 16:20 Plt Morphology Comment Normal (NORMAL) 06/22/19 05:42 RBC Morphology Abnormal (NORMAL) A 06/22/19 05:42 Hypochromasia 1+ A 06/22/19 05:42 Microcytosis 1+ A 06/22/19 05:42 PT 13.0 SECONDS (11.8-14.3) 06/19/19 16:20 INR Target Range - 06/19/19 16:20 INR 1.01 (0.8-1.3) 06/19/19 16:20 Sample Site Rr 06/19/19 18:11 ABG pH 7.470 (7.35-7.45) H 06/19/19 18:11 ABG pCO2 33.0 mmHg (35.0-45.0) L 06/19/19 18:11 ABG pO2 88.0 mmHg (80.0-100.0) 06/19/19 18:11 ABG HCO3 24.0 mmol/L (22-26) 06/19/19 18:11 ABG O2 Saturation 97.0 % (90-100) 06/19/19 18:11 ABG Base Excess 0.8 mmol/L (-2.0-2.0) 06/19/19 18:11 Albaro Test Pos 06/19/19 18:11 A-a Gradient 70.0 mmHg 06/19/19 18:11 FiO2 28.0 06/19/19 18:11 Blood Gas Comments Carolyne well gmb 06/19/19 18:11 Sodium 137 mmol/L (136-145) 06/22/19 05:42 Corrected Sodium 141 mmol/L (136-145) 06/22/19 05:42 Potassium 3.7 mmol/L (3.5-5.1) 06/22/19 05:42 Chloride 102 mmol/L (98-107) 06/22/19 05:42 Carbon Dioxide 27.1 mmol/L (21-32) 06/22/19 05:42 BUN 14 mg/dL (7-18) 06/22/19 05:42 Creatinine 0.93 mg/dL (0.55-1.02) 06/22/19 05:42 Est GFR (MDRD) Af Amer > 60 (>60) 06/22/19 05:42 Est GFR (MDRD) Non-Af > 60 (>60) 06/22/19 05:42 Glucose 258 mg/dL (65-99) H 06/22/19 05:42 Hemoglobin A1c 7.5 % 06/19/19 16:20 Lactic Acid 1.3 mmol/L (0.4-2.0) 06/19/19 22:38 Calcium 8.3 mg/dL (8.5-10.1) L 06/22/19 05:42 Corrected Calcium 9.4 mg/dL (8.5-10.1) 06/22/19 05:42 Phosphorus 2.3 mg/dL (2.6-4.7) L 06/22/19 05:42 Magnesium 1.9 mg/dL (1.7-2.9) 06/22/19 05:42 Total Bilirubin 0.30 mg/dL (0.2-1.0) 06/22/19 05:42 AST 49 Units/L (15-37) H 06/22/19 05:42 ALT 44 Units/L (12-78) 06/22/19 05:42 Alkaline Phosphatase 79 Units/L (46-116) 06/22/19 05:42 Creatine Kinase 88 Units/L (26-192) 06/19/19 16:20 CK-MB (CK-2) < 1.0 ng/mL (0-4.0) 06/19/19 16:20 CK/CKMB % Calc 1.1 % (<4) 06/19/19 16:20 Troponin I < 0.02 ng/mL (0-1.5) 06/19/19 16:20 C-Reactive Protein 53.60 mg/L (0-3.0) H 06/22/19 05:42 Total Protein 6.7 g/dL (6.4-8.2) 06/22/19 05:42 Albumin 2.6 g/dL (3.4-5.0) L 06/22/19 05:42 Globulin 4.1 g/dL (2.5-4.5) 06/22/19 05:42 Albumin/Globulin Ratio 0.6 Ratio (1.1-2.1) L 06/22/19 05:42 Amylase 38 Units/L (25-115) 06/20/19 04:24 Lipase 268 Units/L (73-393) 06/20/19 04:24 TSH 3rd Generation 1.745 uIU/mL (0.358-3.74) 06/19/19 16:20 Specimen Type Clean catch urine 06/19/19 16:09 Urine Color Yellow (YELLOW) 06/19/19 16:09 Urine Appearance Hazy (CLEAR) 06/19/19 16:09 Urine pH 5.0 (5.0 - 8.0) 06/19/19 16:09 Ur Specific [place] 1.025 (1.000-1.030) 06/19/19 16:09 Urine Protein 4+ (NEGATIVE) 06/19/19 16:09 Urine Glucose (UA) 3+ (NEGATIVE) 06/19/19 16:09 Urine Ketones 1+ (NEGATIVE) 06/19/19 16:09 Urine Occult Blood 2+ (NEGATIVE) 06/19/19 16:09 Urine Nitrite Negative (NEGATIVE) 06/19/19 16:09 Urine Bilirubin Negative (NEGATIVE) 06/19/19 16:09 Urine Urobilinogen 1+ (NORMAL) 06/19/19 16:09 Ur Leukocyte Esterase 1+ (NEGATIVE) 06/19/19 16:09 Urine RBC 0-2 /HPF (0-3) 06/19/19 16:09 Urine WBC 0-2 /HPF (0-5) 06/19/19 16:09 Ur Squamous Epith Cells Moderate /HPF (NEGATIVE) 06/19/19 16:09 Amorphous Sediment 1+ /HPF (NEGATIVE) 06/19/19 16:09 Urine Bacteria Trace /HPF (NEGATIVE) 06/19/19 16:09 Hyaline Casts Moderate /LPF (NEGATIVE) 06/19/19 16:09 Granular Casts Few /LPF (NEGATIVE) 06/19/19 16:09 Fine Granular Casts Few /LPF (NEGATIVE) 06/19/19 16:09 Urine Mucus Moderate /HPF (NEGATIVE) 06/19/19 16:09 Ur Culture Indicated? No/not indicated 06/19/19 16:09 Influenza Type A (PCR) Negative (NEGATIVE) 06/19/19 23:05 Influenza Type B (PCR) Negative (NEGATIVE) 06/19/19 23:05 Mycoplasma pneumon IgG Negative (NEGATIVE) 06/19/19 16:30 Plan (1) COVID-19 virus infection: Status: Acute Plan: Positive test confirmed. (2) Bilateral pneumonia: Status: Acute Plan: Pneumonia protocol. (3) Lactic acidosis: Status: Acute Plan: Resolved (4) Hypertension: Status: Inactive Plan: Continue antihypertensives. (5) Diabetes mellitus: Status: Acute Plan: SSI (6) VEL (acute kidney injury): Status: Acute Plan: Resolved (7) Hypomagnesemia: Status: Acute Plan: Per protocol
[2019-06-22] MEDS: NORVASC TAB 10 MG PO SCH (11:40)
[2019-06-22] MEDS: COLACE CAP 100 MG PO SCH ×2 (11:40→21:04)
[2019-06-22] MEDS: VENTOLIN or PROAIR HFA IN PRN ×2 (11:40→16:00)
[2019-06-22] MEDS: TYLENOL 325 MG TAB PO PRN (18:22)
[2019-06-22] MEDS: SNACK - Diabetic Appropriate PO SCH (20:05)
[2019-06-22] MEDS: ZITHROMAX INJ 500 MG VIAL 250 MG in NS 250 ML IV 250 ML IV SCH (21:05)
[2019-06-23] MEDS: NS 1000 ML 1,000 ML IV SCH ×3 (03:00→20:06)
[2019-06-23] MEDS: TYLENOL 325 MG TAB PO PRN (04:29)
[2019-06-23] MEDS: PLAQUENIL PO SCH ×3 (05:00→21:26)
[2019-06-23] MEDS: THIAMINE HCL INJ IV SCH ×2 (06:00→17:34)
[2019-06-23] MEDS: SOLU-Medrol 125 MG VIAL IVP SCH ×3 (06:00→20:06)
[2019-06-23 06:08] LABS: BASOPHILS % (AUTO) 0.2 % (0.2-1.0); HEMATOCRIT 41.5 % (36.0-47.0); HEMOGLOBIN 13.2 g/dL (12.0-16.0); LYMPHOCYTES # (AUTO) 0.3 X10^3/uL (1.3-2.9); LYMPHOCYTES % (AUTO) 2.5 % (21.0-51.0); MEAN CORPUSCULAR HEMOGLOBIN 22.2 pg (27.0-34.0); MEAN CORPUSCULAR HGB CONC 31.9 g/dL (33.0-35.0); MEAN CORPUSCULAR VOLUME 69.5 fL (80.0-100.0); MEAN PLATELET VOLUME 9.5 fL (7.4-11.0); MONOCYTES # (AUTO) 0.6 x10^3/uL (0.3-0.8); MONOCYTES % (AUTO) 5.7 % (0.0-13.0); NEUTROPHILS # (AUTO) 10.4 x10^3/uL (2.2-4.8); NEUTROPHILS % (AUTO) 91.6 % (42.0-75.0); PLATELET COUNT 142 X10^3/uL (150.0-450.0); RED BLOOD COUNT 5.97 X10^6/uL (3.5-5.4); RED CELL DISTRIBUTION WIDTH 16.1 % (11.6-16.5); WHITE BLOOD COUNT 11.4 X10^3/uL (3.6-10.0)
[2019-06-23 06:12] LABS: ALANINE AMINOTRANSFERASE 37 Units/L (12-78); ALBUMIN 2.5 g/dL (3.4-5.0); ALKALINE PHOSPHATASE 72 Units/L (46-116); ASPARTATE AMINO TRANSFERASE 33 Units/L (15-37); BLOOD UREA NITROGEN 12 mg/dL (7-18); CALCIUM 8.3 mg/dL (8.5-10.1); CHLORIDE 100 mmol/L (98-107); COR CA(FOR HYPOALB) 9.5 mg/dL (8.5-10.1); COR NA(FOR HYPERGLY) 141 mmol/L (136-145); CREATININE 0.95 mg/dL (0.55-1.02); MAGNESIUM 1.8 mg/dL (1.7-2.9); SODIUM 137 mmol/L (136-145); TOTAL PROTEIN 6.5 g/dL (6.4-8.2); eGFR NON BLACK RACES > 60 (>60)
[2019-06-23 06:33] LABS: GIANT PLATELET FEW; HYPOCHROMASIA 1+; MICROCYTOSIS 1+; PLATELET MORPHOLOGY COMMENT NORMAL (NORMAL)
[2019-06-23] MEDS: HumuLIN R SUBCUT PRN ×3 (07:11→20:13)
[2019-06-23] MEDS: AMARYL TAB 4 MG PO SCH (07:11)
[2019-06-23] MEDS ORDERED: POTASSIUM CHL 60 MEQ/NS 0.45% 500 ML IV PRN (07:12)
[2019-06-23] MEDS ORDERED: KLOR-CON PO PRN (07:12)
[2019-06-23] MEDS ORDERED: K-RIDER 10 MEQ/NS 100 ML 10 MEQ/100 ML BAG IV PRN (07:12)
[2019-06-23] MEDS ORDERED: POTASSIUM CHL 40 MEQ/NS 0.45% 500 ML IV PRN (07:12)
[2019-06-23] MEDS ORDERED: MICRO K EXTEN CAP 10 MEQ PO PRN (07:12)
[2019-06-23] MEDS ORDERED: POTASSIUM CHLORIDE LIQ 20 MEQ UDC PO PRN (07:12)
--- NOTE | 2019-06-23 07:30 | RAD ---
HISTORYFollow-up pneumonia, COVID-19STUDYCHEST, 1 [id number] heart is within normal limits in size. The darnell are normal. Bilateral peripheral alveolar infiltrates are present left greater than right involving the upper and lower lung christy. Considering a slight difference in film technique there is no significant change when compared to the prior examination.IMPRESSIONNo change bilateral peripheral lung infiltrates left greater than rightElectronically signed by: MOHAMUD JONES (Jun 23, 2019 07:29:19)
[2019-06-23] MEDS: COLACE CAP 100 MG PO SCH ×2 (09:02→20:07)
[2019-06-23] MEDS: NORVASC TAB 10 MG PO SCH (09:02)
[2019-06-23] MEDS: K-DUR TAB 20 MEQ PO PRN (09:03)
[2019-06-23] MEDS: ZINC SULFATE PO SCH ×2 (09:03→20:07)
[2019-06-23] MEDS: TOPROL XL PO SCH (09:03)
[2019-06-23] MEDS: VITAMIN C PO SCH (09:03)
[2019-06-23] MEDS ORDERED: MILK OF MAGNESIA PO PRN (11:44)
--- NOTE | 2019-06-23 11:54 | PCM.PROG ---
Progress Note Progress Note for Day of Date of Exam: 06/23/19 Subjective Subjective: Pt is a 73 yo f pmhx HTN, DMT2, admitted COVID-19 pneumonia. She feeling a little better and is eating her breakfast. Her CXR does not show any change. She was down to 2L nc yesterday but required up to 4L overnight. Continuing Zithromax, Plaquenil, IV Solumedrol that will be decreased today to BID dosing, Zinc, Vit C, thiamine. IVF at [facility]. BloodCx + coagulase negative staph likely contaminant, repeat pending. Labs CRP: 53>73, Wbc 11.4, Hgb 13.2, Plt 142, Gluc 238, Cr 0.95, AST 33, ALT 37. Pt was started on Norvasc yesterday, BP has improved. Albuterol inhaler for shortness of breath. Continue to monitor and follow up labs in the morning. Past Medical Family Social History Past Med/Fam/Surg Hx: No changes since H&P Allergies: Allergies codeine Allergy (Verified 06/05/18 18:22) hydrocodone Allergy (Verified 06/19/19 16:28) levofloxacin [From Levaquin] Allergy (Verified 06/19/19 16:33) penicillin G Allergy (Verified 06/05/18 18:22) Sulfa (Sulfonamide Antibiotics) [SULFA] Allergy (Verified 06/05/18 18:22) tramadol Allergy (Verified 06/19/19 16:28) Review of Systems ROS: No change since H&P Vital Signs and I&O's Vital Signs: Temperature 98.1 F Pulse Rate [Left Radial] 118 Pulse Rate 103 Respiratory Rate 32 Blood Pressure [Left Arm] 164/77 Blood Pressure 164/77 O2 Sat by Pulse Oximetry 97 Intake and Output: Intake & Output 06/20/19 06/21/19 06/22/19 06/23/19 23:59 23:59 23:59 23:59 Intake Total 3904 / 3904 2919 / 2919 1928 / 1928 438 / 438 Output Total 3600 / 3600 2150 / 2150 4400 / 4400 600 / 600 Balance 304 / 304 769 / 769 -2472 / -2472 -162 / -162 Physical Exam Oriented: Normal Eyes: Normal Ear: Normal Nose: Normal Throat: Normal Respiratory: Rales (improved, minimal ) Cardiovascular: Normal : Normal Auscultation: Bowel Sounds: Normal Tenderness: Normal Skin: Normal Musculoskeletal: Normal Psychiatric: Normal Speech Pattern: Clear and Appropriate Laboratory and Diagnostics Result Diagrams: 06/23/19 05:42 06/23/19 05:42 Labs: 06/19/19 16:20 Blood Blood Culture - Final Laboratory WBC 11.4 X10^3/uL (3.6-10.0) H 06/23/19 05:42 RBC 5.97 X10^6/uL (3.5-5.4) H 06/23/19 05:42 Hgb 13.2 g/dL (12.0-16.0) 06/23/19 05:42 Hct 41.5 % (36.0-47.0) 06/23/19 05:42 MCV 69.5 fL (80.0-100.0) L 06/23/19 05:42 MCH 22.2 pg (27.0-34.0) L 06/23/19 05:42 MCHC 31.9 g/dL (33.0-35.0) L 06/23/19 05:42 RDW 16.1 % (11.6-16.5) 06/23/19 05:42 Plt Count 142 X10^3/uL (150.0-450.0) L 06/23/19 05:42 Plt Count Comment Adequate (ADEQUATE) 06/23/19 05:42 MPV 9.5 fL (7.4-11.0) 06/23/19 05:42 Neut % (Auto) 91.6 % (42.0-75.0) H 06/23/19 05:42 Lymph % (Auto) 2.5 % (21.0-51.0) L 06/23/19 05:42 [place] % (Auto) 5.7 % (0.0-13.0) 06/23/19 05:42 Eos % (Auto) 0.0 % (0.9-2.9) L 06/23/19 05:42 Baso % (Auto) 0.2 % (0.2-1.0) 06/23/19 05:42 Neut # (Auto) 10.4 x10^3/uL (2.2-4.8) H 06/23/19 05:42 Lymph # (Auto) 0.3 X10^3/uL (1.3-2.9) L 06/23/19 05:42 [place] # (Auto) 0.6 x10^3/uL (0.3-0.8) 06/23/19 05:42 Eos # (Auto) 0.0 x10^3/uL (0.0-0.2) 06/23/19 05:42 Baso # (Auto) 0.0 X10^3/uL (0.0-0.1) 06/23/19 05:42 Absolute Nucleated RBC 0.0 /100WBC 06/23/19 05:42 Total Counted 100 06/23/19 05:42 Neutrophils % (Manual) 86 % (39-76) H 06/23/19 05:42 Band Neutrophils % 3 % (0-10) 06/22/19 05:42 Lymphocytes % (Manual) 12 % (13-43) L 06/23/19 05:42 Monocytes % (Manual) 2 % (4-9) L 06/23/19 05:42 Giant Platelets Few 06/23/19 05:42 Plt Morphology Comment Normal (NORMAL) 06/23/19 05:42 RBC Morphology Abnormal (NORMAL) A 06/23/19 05:42 Hypochromasia 1+ A 06/23/19 05:42 Microcytosis 1+ A 06/23/19 05:42 PT 13.0 SECONDS (11.8-14.3) 06/19/19 16:20 INR Target Range - 06/19/19 16:20 INR 1.01 (0.8-1.3) 06/19/19 16:20 Sample Site Rr 06/19/19 18:11 ABG pH 7.470 (7.35-7.45) H 06/19/19 18:11 ABG pCO2 33.0 mmHg (35.0-45.0) L 06/19/19 18:11 ABG pO2 88.0 mmHg (80.0-100.0) 06/19/19 18:11 ABG HCO3 24.0 mmol/L (22-26) 06/19/19 18:11 ABG O2 Saturation 97.0 % (90-100) 06/19/19 18:11 ABG Base Excess 0.8 mmol/L (-2.0-2.0) 06/19/19 18:11 Albaro Test Pos 06/19/19 18:11 A-a Gradient 70.0 mmHg 06/19/19 18:11 FiO2 28.0 06/19/19 18:11 Blood Gas Comments Carolyne well gmb 06/19/19 18:11 Sodium 137 mmol/L (136-145) 06/23/19 05:42 Corrected Sodium 141 mmol/L (136-145) 06/23/19 05:42 Potassium 3.3 mmol/L (3.5-5.1) L 06/23/19 05:42 Chloride 100 mmol/L (98-107) 06/23/19 05:42 Carbon Dioxide 29.0 mmol/L (21-32) 06/23/19 05:42 BUN 12 mg/dL (7-18) 06/23/19 05:42 Creatinine 0.95 mg/dL (0.55-1.02) 06/23/19 05:42 Est GFR (MDRD) Af Amer > 60 (>60) 06/23/19 05:42 Est GFR (MDRD) Non-Af > 60 (>60) 06/23/19 05:42 Glucose 273 mg/dL (65-99) H 06/23/19 05:42 Hemoglobin A1c 7.5 % 06/19/19 16:20 Lactic Acid 1.3 mmol/L (0.4-2.0) 06/19/19 22:38 Calcium 8.3 mg/dL (8.5-10.1) L 06/23/19 05:42 Corrected Calcium 9.5 mg/dL (8.5-10.1) 06/23/19 05:42 Phosphorus 3.0 mg/dL (2.6-4.7) 06/23/19 05:42 Magnesium 1.8 mg/dL (1.7-2.9) 06/23/19 05:42 Total Bilirubin 0.40 mg/dL (0.2-1.0) 06/23/19 05:42 AST 33 Units/L (15-37) 06/23/19 05:42 ALT 37 Units/L (12-78) 06/23/19 05:42 Alkaline Phosphatase 72 Units/L (46-116) 06/23/19 05:42 Creatine Kinase 88 Units/L (26-192) 06/19/19 16:20 CK-MB (CK-2) < 1.0 ng/mL (0-4.0) 06/19/19 16:20 CK/CKMB % Calc 1.1 % (<4) 06/19/19 16:20 Troponin I < 0.02 ng/mL (0-1.5) 06/19/19 16:20 C-Reactive Protein 73.80 mg/L (0-3.0) H 06/23/19 05:42 Total Protein 6.5 g/dL (6.4-8.2) 06/23/19 05:42 Albumin 2.5 g/dL (3.4-5.0) L 06/23/19 05:42 Globulin 4.0 g/dL (2.5-4.5) 06/23/19 05:42 Albumin/Globulin Ratio 0.6 Ratio (1.1-2.1) L 06/23/19 05:42 Amylase 38 Units/L (25-115) 06/20/19 04:24 Lipase 268 Units/L (73-393) 06/20/19 04:24 TSH 3rd Generation 1.745 uIU/mL (0.358-3.74) 06/19/19 16:20 Specimen Type Clean catch urine 06/19/19 16:09 Urine Color Yellow (YELLOW) 06/19/19 16:09 Urine Appearance Hazy (CLEAR) 06/19/19 16:09 Urine pH 5.0 (5.0 - 8.0) 06/19/19 16:09 Ur Specific [place] 1.025 (1.000-1.030) 06/19/19 16:09 Urine Protein 4+ (NEGATIVE) 06/19/19 16:09 Urine Glucose (UA) 3+ (NEGATIVE) 06/19/19 16:09 Urine Ketones 1+ (NEGATIVE) 06/19/19 16:09 Urine Occult Blood 2+ (NEGATIVE) 06/19/19 16:09 Urine Nitrite Negative (NEGATIVE) 06/19/19 16:09 Urine Bilirubin Negative (NEGATIVE) 06/19/19 16:09 Urine Urobilinogen 1+ (NORMAL) 06/19/19 16:09 Ur Leukocyte Esterase 1+ (NEGATIVE) 06/19/19 16:09 Urine RBC 0-2 /HPF (0-3) 06/19/19 16:09 Urine WBC 0-2 /HPF (0-5) 06/19/19 16:09 Ur Squamous Epith Cells Moderate /HPF (NEGATIVE) 06/19/19 16:09 Amorphous Sediment 1+ /HPF (NEGATIVE) 06/19/19 16:09 Urine Bacteria Trace /HPF (NEGATIVE) 06/19/19 16:09 Hyaline Casts Moderate /LPF (NEGATIVE) 06/19/19 16:09 Granular Casts Few /LPF (NEGATIVE) 06/19/19 16:09 Fine Granular Casts Few /LPF (NEGATIVE) 06/19/19 16:09 Urine Mucus Moderate /HPF (NEGATIVE) 06/19/19 16:09 Ur Culture Indicated? No/not indicated 06/19/19 16:09 Influenza Type A (PCR) Negative (NEGATIVE) 06/19/19 23:05 Influenza Type B (PCR) Negative (NEGATIVE) 06/19/19 23:05 Mycoplasma pneumon IgG Negative (NEGATIVE) 06/19/19 16:30 Miscellaneous Test Covid 19 06/19/19 18:20 Plan (1) COVID-19 virus infection: Status: Acute Plan: Positive test confirmed. (2) Bilateral pneumonia: Status: Acute Plan: Pneumonia protocol. (3) Lactic acidosis: Status: Acute Plan: Resolved (4) Hypertension: Status: Inactive Plan: Continue antihypertensives. (5) Diabetes mellitus: Status: Acute Plan: SSI (6) VEL (acute kidney injury): Status: Acute Plan: Resolved (7) Hypomagnesemia: Status: Acute Plan: Per protocol (8) Hypokalemia: Status: Acute Plan: Per protocol
[2019-06-23 16:19] LABS: BILIRUBIN,URINE NEGATIVE (NEGATIVE); BLOOD/HEMOGLOBIN,URINE 1+ (NEGATIVE); GLUCOSE, URINE 2+ (NEGATIVE); KETONES,URINE NEGATIVE (NEGATIVE); LEUKOCYTE ESTERASE ,URINE NEGATIVE (NEGATIVE); NITRITES,URINE NEGATIVE (NEGATIVE); PROTEIN,URINE 2+ (NEGATIVE); UROBILINOGEN,URINE NORMAL (NORMAL)
[2019-06-23 16:20] LABS: APPEARANCE,URINE HAZY (CLEAR); COLOR,URINE STRAW (YELLOW)
[2019-06-23 16:25] LABS: BACTERIA,URINE TRACE /HPF (NEGATIVE); MUCUS,URINE RARE /HPF (NEGATIVE); RBC,URINE 0-2 /HPF (0-3); SQUAMOUS EPITHELIAL CELL,UR RARE /HPF (NEGATIVE)
--- NOTE | 2019-06-23 17:27 | RAD ---
HISTORYCENTRAL LINE PLACEMENT, COVID-19 POSTIVESTUDYCHEST, 1 VIEWCOMPARISONChest radiographs performed earlier today also on June 23, [id number] patient is slightly rotated. The cardiac silhouette is unremarkable . The lungs are clear without focal infiltrate or effusion. A right-sided central venous catheter is noted with the tip projecting near the caval atrial junction. An overlying lead obscures detail. Persistent bilateral infiltrates are again noted left greater than right similar to prior exam.IMPRESSIONPersistent bilateral infiltrates similar to prior exam.Right-sided central venous catheter placement as noted above.Electronically signed by: VICKIE LIZ (Jun 23, 2019 17:26:22)
--- NOTE | 2019-06-23 19:12 | DR.UPDATE ---
H&P Update History and Physical Update: History and Physical reviewed and patient examined. Changes noted: NO Yes with the following:will place right IJ TLC for iv access. Prescription drug monitoring program results: PDMP reviewed and no concerns identified H&P Reviewed: Yes Patient was examined?: Yes Procedures (ALL) - Central Line Placement PCM.CLCO: written consent Time out performed: Yes Patient placed pm monitor/pulse ox: Yes MD prep: mask, gown, gloves, other Centrial line prep: chlorhexidine scrub Local anesthsia used: lidocane 1% Ultrasound used for placement: Yes (right ij id'd) Central line lumen ininserted: triple Post procedure: sutured in place, good blood return, all ports aspirated, flushed,capped, sterile dressing applied Post procedure xray: tip oc catheter in good position Patient tolerated procedure: Yes Complications: none
[2019-06-23] MEDS: SNACK - Diabetic Appropriate PO SCH (20:06)
[2019-06-23] MEDS: MAGNESIUM SULFATE 1 GRAM/100 mL PREMIX 1 GM/100 ML BAG IV PRN ×2 (20:08→21:26)
[2019-06-23] MEDS: ZITHROMAX INJ 500 MG VIAL 250 MG in NS 250 ML IV 250 ML IV SCH (20:08)
[2019-06-24] MEDS: NS 1000 ML 1,000 ML IV SCH ×3 (01:31→19:03)
[2019-06-24] MEDS: PLAQUENIL PO SCH ×3 (05:49→20:00)
[2019-06-24] MEDS: THIAMINE HCL INJ IV SCH ×2 (05:49→17:14)
[2019-06-24] MEDS: TYLENOL 325 MG TAB PO PRN ×2 (05:50→13:00)
[2019-06-24 06:01] LABS: BASOPHILS % (AUTO) 0.1 % (0.2-1.0); HEMATOCRIT 41.6 % (36.0-47.0); HEMOGLOBIN 13.4 g/dL (12.0-16.0); LYMPHOCYTES # (AUTO) 0.3 X10^3/uL (1.3-2.9); LYMPHOCYTES % (AUTO) 2.3 % (21.0-51.0); MEAN CORPUSCULAR HEMOGLOBIN 22.3 pg (27.0-34.0); MEAN CORPUSCULAR HGB CONC 32.2 g/dL (33.0-35.0); MEAN CORPUSCULAR VOLUME 69.4 fL (80.0-100.0); MEAN PLATELET VOLUME 9.6 fL (7.4-11.0); MONOCYTES # (AUTO) 0.7 x10^3/uL (0.3-0.8); MONOCYTES % (AUTO) 5.3 % (0.0-13.0); NEUTROPHILS % (AUTO) 92.3 % (42.0-75.0); PLATELET COUNT 154 X10^3/uL (150.0-450.0); RED CELL DISTRIBUTION WIDTH 15.6 % (11.6-16.5); WHITE BLOOD COUNT 14.1 X10^3/uL (3.6-10.0)
[2019-06-24 06:17] LABS: ALANINE AMINOTRANSFERASE 39 Units/L (12-78); ALBUMIN 2.3 g/dL (3.4-5.0); ALKALINE PHOSPHATASE 84 Units/L (46-116); ASPARTATE AMINO TRANSFERASE 38 Units/L (15-37); BLOOD UREA NITROGEN 12 mg/dL (7-18); CALCIUM 8.1 mg/dL (8.5-10.1); CARBON DIOXIDE 30.1 mmol/L (21-32); CHLORIDE 100 mmol/L (98-107); COR CA(FOR HYPOALB) 9.5 mg/dL (8.5-10.1); COR NA(FOR HYPERGLY) 140 mmol/L (136-145); CREATININE 0.95 mg/dL (0.55-1.02); MAGNESIUM 2.2 mg/dL (1.7-2.9); SODIUM 136 mmol/L (136-145); TOTAL PROTEIN 6.4 g/dL (6.4-8.2); eGFR NON BLACK RACES > 60 (>60)
[2019-06-24 06:26] LABS: HYPOCHROMASIA 1+; MICROCYTOSIS 1+; PLATELET MORPHOLOGY COMMENT NORMAL (NORMAL)
[2019-06-24] MEDS: HumuLIN R SUBCUT PRN (06:32)
[2019-06-24] MEDS: AMARYL TAB 4 MG PO SCH (06:34)
[2019-06-24] MEDS: SOLU-Medrol 125 MG VIAL IVP SCH (08:43)
--- NOTE | 2019-06-24 08:44 | PCM.PROG ---
Progress Note Progress Note for Day of Date of Exam: 06/24/19 Subjective Subjective: Pt is a 73 yo f pmhx HTN, DMT2, admitted COVID-19 pneumonia. Pt was resting in bed this morning with non-rebreather. She reports some improvement and denies any worsening of sx. Yesterday pt had difficulty with blood draw for labs and had to have central line placement. She also had joshi placed, discussed with pt that if she continues to wear oxygen when she goes to bathroom can remove joshi today. Continuing Zithromax, Plaquenil, IV Solumedrol tapered again today to daily dosing, Zinc, Vit C, thiamine. IVF at [facility]. BloodCx + coagulase negative staph likely contaminant, repeat pending. Labs, Wbc 14, Hgb 13.4, Plt 154, Gluc 285, Cr 0.95, AST 38, ALT 39. Albuterol inhaler for shortness of breath. Will have RT evaluate resting and ambulatory O2 requirement. Continue to monitor and follow up labs in the morning. Past Medical Family Social History Past Med/Fam/Surg Hx: No changes since H&P Allergies: Allergies codeine Allergy (Verified 06/05/18 18:22) hydrocodone Allergy (Verified 06/19/19 16:28) levofloxacin [From Levaquin] Allergy (Verified 06/19/19 16:33) penicillin G Allergy (Verified 06/05/18 18:22) Sulfa (Sulfonamide Antibiotics) [SULFA] Allergy (Verified 06/05/18 18:22) tramadol Allergy (Verified 06/19/19 16:28) Review of Systems ROS: No change since H&P Vital Signs and I&O's Vital Signs: Temperature 98 F Pulse Rate [Left Radial] 118 Pulse Rate 100 Respiratory Rate 30 Blood Pressure [Left Arm] 164/77 Blood Pressure 148/87 O2 Sat by Pulse Oximetry 97 Intake and Output: Intake & Output 06/21/19 06/22/19 06/23/19 06/24/19 23:59 23:59 23:59 23:59 Intake Total 2919 / 2919 8 / 1928 2053 / 2053 426 / 426 Output Total 2150 / 2150 4400 / 4400 2750 / 2750 1100 / 1100 Balance 769 / 769 -2472 / -2472 -696 / -696 -674 / -674 Physical Exam Oriented: Normal Eyes: Normal Ear: Normal Nose: Normal Throat: Normal Respiratory: Rales (improved, minimal ) Cardiovascular: Normal : Normal Auscultation: Bowel Sounds: Normal Tenderness: Normal Skin: Normal Musculoskeletal: Normal Psychiatric: Normal Speech Pattern: Clear and Appropriate Laboratory and Diagnostics Result Diagrams: 06/24/19 05:25 06/24/19 05:25 Labs: 06/19/19 16:20 Blood Blood Culture - Final Laboratory WBC 14.1 X10^3/uL (3.6-10.0) H 06/24/19 05:25 RBC 6.00 X10^6/uL (3.5-5.4) H 06/24/19 05:25 Hgb 13.4 g/dL (12.0-16.0) 06/24/19 05:25 Hct 41.6 % (36.0-47.0) 06/24/19 05:25 MCV 69.4 fL (80.0-100.0) L 06/24/19 05:25 MCH 22.3 pg (27.0-34.0) L 06/24/19 05:25 MCHC 32.2 g/dL (33.0-35.0) L 06/24/19 05:25 RDW 15.6 % (11.6-16.5) 06/24/19 05:25 Plt Count 154 X10^3/uL (150.0-450.0) 06/24/19 05:25 Plt Count Comment Adequate (ADEQUATE) 06/24/19 05:25 MPV 9.6 fL (7.4-11.0) 06/24/19 05:25 Neut % (Auto) 92.3 % (42.0-75.0) H 06/24/19 05:25 Lymph % (Auto) 2.3 % (21.0-51.0) L 06/24/19 05:25 [place] % (Auto) 5.3 % (0.0-13.0) 06/24/19 05:25 Eos % (Auto) 0.0 % (0.9-2.9) L 06/24/19 05:25 Baso % (Auto) 0.1 % (0.2-1.0) L 06/24/19 05:25 Neut # (Auto) 13.0 x10^3/uL (2.2-4.8) H 06/24/19 05:25 Lymph # (Auto) 0.3 X10^3/uL (1.3-2.9) L 06/24/19 05:25 [place] # (Auto) 0.7 x10^3/uL (0.3-0.8) 06/24/19 05:25 Eos # (Auto) 0.0 x10^3/uL (0.0-0.2) 06/24/19 05:25 Baso # (Auto) 0.0 X10^3/uL (0.0-0.1) 06/24/19 05:25 Absolute Nucleated RBC 0.1 /100WBC 06/24/19 05:25 Total Counted 100 06/24/19 05:25 Neutrophils % (Manual) 86 % (39-76) H 06/24/19 05:25 Band Neutrophils % 3 % (0-10) 06/22/19 05:42 Lymphocytes % (Manual) 14 % (13-43) 06/24/19 05:25 Monocytes % (Manual) 2 % (4-9) L 06/23/19 05:42 Giant Platelets Few 06/23/19 05:42 Plt Morphology Comment Normal (NORMAL) 06/24/19 05:25 RBC Morphology Abnormal (NORMAL) A 06/24/19 05:25 Hypochromasia 1+ A 06/24/19 05:25 Microcytosis 1+ A 06/24/19 05:25 PT 13.0 SECONDS (11.8-14.3) 06/19/19 16:20 INR Target Range - 06/19/19 16:20 INR 1.01 (0.8-1.3) 06/19/19 16:20 D-Dimer > 5000 ng/mL (0-400) H* 06/24/19 05:25 Sample Site Rr 06/19/19 18:11 ABG pH 7.470 (7.35-7.45) H 06/19/19 18:11 ABG pCO2 33.0 mmHg (35.0-45.0) L 06/19/19 18:11 ABG pO2 88.0 mmHg (80.0-100.0) 06/19/19 18:11 ABG HCO3 24.0 mmol/L (22-26) 06/19/19 18:11 ABG O2 Saturation 97.0 % (90-100) 06/19/19 18:11 ABG Base Excess 0.8 mmol/L (-2.0-2.0) 06/19/19 18:11 Albaro Test Pos 06/19/19 18:11 A-a Gradient 70.0 mmHg 06/19/19 18:11 FiO2 28.0 06/19/19 18:11 Blood Gas Comments Carolyne well gmb 06/19/19 18:11 Sodium 136 mmol/L (136-145) 06/24/19 05:25 Corrected Sodium 140 mmol/L (136-145) 06/24/19 05:25 Potassium 3.9 mmol/L (3.5-5.1) 06/24/19 05:25 Chloride 100 mmol/L (98-107) 06/24/19 05:25 Carbon Dioxide 30.1 mmol/L (21-32) 06/24/19 05:25 BUN 12 mg/dL (7-18) 06/24/19 05:25 Creatinine 0.95 mg/dL (0.55-1.02) 06/24/19 05:25 Est GFR (MDRD) Af Amer > 60 (>60) 06/24/19 05:25 Est GFR (MDRD) Non-Af > 60 (>60) 06/24/19 05:25 Glucose 285 mg/dL (65-99) H 06/24/19 05:25 Hemoglobin A1c 7.5 % 06/19/19 16:20 Lactic Acid 1.3 mmol/L (0.4-2.0) 06/19/19 22:38 Calcium 8.1 mg/dL (8.5-10.1) L 06/24/19 05:25 Corrected Calcium 9.5 mg/dL (8.5-10.1) 06/24/19 05:25 Phosphorus 3.0 mg/dL (2.6-4.7) 06/23/19 05:42 Magnesium 2.2 mg/dL (1.7-2.9) 06/24/19 05:25 Total Bilirubin 0.50 mg/dL (0.2-1.0) 06/24/19 05:25 AST 38 Units/L (15-37) H 06/24/19 05:25 ALT 39 Units/L (12-78) 06/24/19 05:25 Alkaline Phosphatase 84 Units/L (46-116) 06/24/19 05:25 Creatine Kinase 88 Units/L (26-192) 06/19/19 16:20 CK-MB (CK-2) < 1.0 ng/mL (0-4.0) 06/19/19 16:20 CK/CKMB % Calc 1.1 % (<4) 06/19/19 16:20 Troponin I < 0.02 ng/mL (0-1.5) 06/19/19 16:20 C-Reactive Protein 91.80 mg/L (0-3.0) H 06/24/19 05:25 Total Protein 6.4 g/dL (6.4-8.2) 06/24/19 05:25 Albumin 2.3 g/dL (3.4-5.0) L 06/24/19 05:25 Globulin 4.1 g/dL (2.5-4.5) 06/24/19 05:25 Albumin/Globulin Ratio 0.6 Ratio (1.1-2.1) L 06/24/19 05:25 Amylase 38 Units/L (25-115) 06/20/19 04:24 Lipase 268 Units/L (73-393) 06/20/19 04:24 TSH 3rd Generation 1.745 uIU/mL (0.358-3.74) 06/19/19 16:20 Specimen Type Catherized urine 06/23/19 16:07 Urine Color Straw (YELLOW) 06/23/19 16:07 Urine Appearance Hazy (CLEAR) 06/23/19 16:07 Urine pH 8.0 (5.0 - 8.0) 06/23/19 16:07 Ur Specific [place] 1.010 (1.000-1.030) 06/23/19 16:07 Urine Protein 2+ (NEGATIVE) 06/23/19 16:07 Urine Glucose (UA) 2+ (NEGATIVE) 06/23/19 16:07 Urine Ketones Negative (NEGATIVE) 06/23/19 16:07 Urine Occult Blood 1+ (NEGATIVE) 06/23/19 16:07 Urine Nitrite Negative (NEGATIVE) 06/23/19 16:07 Urine Bilirubin Negative (NEGATIVE) 06/23/19 16:07 Urine Urobilinogen Normal (NORMAL) 06/23/19 16:07 Ur Leukocyte Esterase Negative (NEGATIVE) 06/23/19 16:07 Urine RBC 0-2 /HPF (0-3) 06/23/19 16:07 Urine WBC 0-2 /HPF (0-5) 06/23/19 16:07 Ur Squamous Epith Cells Rare /HPF (NEGATIVE) 06/23/19 16:07 Amorphous Sediment 1+ /HPF (NEGATIVE) 06/19/19 16:09 Urine Bacteria Trace /HPF (NEGATIVE) 06/23/19 16:07 Hyaline Casts Moderate /LPF (NEGATIVE) 06/19/19 16:09 Granular Casts Few /LPF (NEGATIVE) 06/19/19 16:09 Fine Granular Casts Few /LPF (NEGATIVE) 06/19/19 16:09 Urine Mucus Rare /HPF (NEGATIVE) 06/23/19 16:07 Ur Culture Indicated? No/not indicated 06/23/19 16:07 Influenza Type A (PCR) Negative (NEGATIVE) 06/19/19 23:05 Influenza Type B (PCR) Negative (NEGATIVE) 06/19/19 23:05 Mycoplasma pneumon IgG Negative (NEGATIVE) 06/19/19 16:30 Miscellaneous Test Covid 19 06/19/19 18:20 Plan (1) COVID-19 virus infection: Status: Acute Plan: Positive test confirmed. Pneumonia protocol (2) Bilateral pneumonia: Status: Acute Plan: Pneumonia protocol. (3) Lactic acidosis: Status: Acute Plan: Resolved (4) Hypertension: Status: Inactive Plan: Continue antihypertensives. (5) Diabetes mellitus: Status: Acute Plan: SSI (6) VEL (acute kidney injury): Status: Acute Plan: Resolved (7) Hypomagnesemia: Status: Acute Plan: Per protocol (8) Hypokalemia: Status: Acute Plan: Per protocol
[2019-06-24] MEDS: NORVASC TAB 10 MG PO SCH (08:45)
[2019-06-24] MEDS: COLACE CAP 100 MG PO SCH ×2 (08:45→20:00)
[2019-06-24] MEDS: VITAMIN C PO SCH (08:46)
[2019-06-24] MEDS: ZINC SULFATE PO SCH ×2 (08:46→20:00)
[2019-06-24] MEDS: TOPROL XL PO SCH (08:46)
[2019-06-24] MEDS: LOVENOX INJ 40 MG SYR SC SCH (10:30)
[2019-06-24] MEDS ORDERED: ACTEMRA SQ NR (12:32)
[2019-06-24] MEDS: SNACK - Diabetic Appropriate PO SCH (19:57)
[2019-06-24] MEDS: VENTOLIN or PROAIR HFA IN PRN (20:31)
[2019-06-25] MEDS: NS 1000 ML 1,000 ML IV SCH (02:57)
[2019-06-25] MEDS: TYLENOL 325 MG TAB PO PRN (02:58)
[2019-06-25] MEDS: THIAMINE HCL INJ IV SCH (05:35)
[2019-06-25 06:08] LABS: BASOPHILS % (AUTO) 0.1 % (0.2-1.0); EOSINOPHILS % (AUTO) 0.3 % (0.9-2.9); HEMOGLOBIN 13.6 g/dL (12.0-16.0); LYMPHOCYTES # (AUTO) 0.5 X10^3/uL (1.3-2.9); LYMPHOCYTES % (AUTO) 3.9 % (21.0-51.0); MEAN CORPUSCULAR HEMOGLOBIN 22.4 pg (27.0-34.0); MEAN CORPUSCULAR HGB CONC 32.3 g/dL (33.0-35.0); MEAN CORPUSCULAR VOLUME 69.4 fL (80.0-100.0); MEAN PLATELET VOLUME 9.4 fL (7.4-11.0); MONOCYTES # (AUTO) 0.4 x10^3/uL (0.3-0.8); MONOCYTES % (AUTO) 2.8 % (0.0-13.0); NEUTROPHILS # (AUTO) 12.8 x10^3/uL (2.2-4.8); NEUTROPHILS % (AUTO) 92.9 % (42.0-75.0); PLATELET COUNT 141 X10^3/uL (150.0-450.0); RED BLOOD COUNT 6.05 X10^6/uL (3.5-5.4); RED CELL DISTRIBUTION WIDTH 15.5 % (11.6-16.5); WHITE BLOOD COUNT 13.8 X10^3/uL (3.6-10.0)
[2019-06-25 06:22] LABS: ALANINE AMINOTRANSFERASE 50 Units/L (12-78); ALBUMIN 2.1 g/dL (3.4-5.0); ALKALINE PHOSPHATASE 111 Units/L (46-116); ASPARTATE AMINO TRANSFERASE 44 Units/L (15-37); BLOOD UREA NITROGEN 12 mg/dL (7-18); CARBON DIOXIDE 28.7 mmol/L (21-32); CHLORIDE 98 mmol/L (98-107); COR CA(FOR HYPOALB) 9.5 mg/dL (8.5-10.1); COR NA(FOR HYPERGLY) 137 mmol/L (136-145); CREATININE 0.98 mg/dL (0.55-1.02); SODIUM 134 mmol/L (136-145); TOTAL PROTEIN 6.2 g/dL (6.4-8.2); eGFR NON BLACK RACES 59 (>60)
[2019-06-25 06:28] LABS: HYPOCHROMASIA 1+; MICROCYTOSIS 1+; PLATELET MORPHOLOGY COMMENT NORMAL (NORMAL)
--- NOTE | 2019-06-25 06:39 | RAD ---
HISTORYFollow-up COVID-19STUDYCHEST, 1 [id number] is a right IJ line with its tip near the cavoatrial junction. The heart is within normal limits in size. Bilateral infiltrates are present involving the right upper and right lower lobe and the entire left lung. Bilaterally infiltrates are slightly less dense indicating mild improvement. No pleural effusions are identified. Bony thorax is unremarkable.IMPRESSIONSlight improvement in the bilateral infiltrates being followedElectronically signed by: MOHAMUD JONES (Jun 25, 2019 06:38:08)
[2019-06-25] MEDS: K-DUR TAB 20 MEQ PO PRN (06:50)
[2019-06-25] MEDS: AMARYL TAB 4 MG PO SCH (06:50)
[2019-06-25] MEDS ORDERED: ACTEMRA SQ ONE (07:55)
[2019-06-25] MEDS ORDERED: TOPROL XL PO SCH (09:00)
[2019-06-25] MEDS ORDERED: VIBRAMYCIN PO SCH (09:00)
[2019-06-25] MEDS ORDERED: SOLU-Medrol 125 MG VIAL IVP SCH (09:00)
[2019-06-25] MEDS: COLACE CAP 100 MG PO SCH (09:03)
[2019-06-25] MEDS: LOVENOX INJ 40 MG SYR SC SCH (09:04)
[2019-06-25] MEDS: NORVASC TAB 10 MG PO SCH (09:04)
[2019-06-25] MEDS: PLAQUENIL PO SCH (09:08)
[2019-06-25] MEDS: ZINC SULFATE PO SCH (09:11)
[2019-06-25] MEDS: VITAMIN C PO SCH (09:11)
--- NOTE | 2019-06-25 10:06 | PCM.PROG ---
Progress Note Progress Note for Day of Date of Exam: 06/25/19 Subjective Subjective: Pt is a 73 yo f pmhx HTN, DMT2, admitted COVID-19 pneumonia. Pt is sitting in recliner, appears tired. She states she did not sleep well. Will add ambien. She refused using the heated high flow overnight and had to be placed back on re-breather. She has completed course of Zithromax but due to continued sx will start her on Doxycycline to try and avoid QT prolongation with Plaquenil. Continue IV Solumedrol, Zinc, Vit C, thiamine. IVF at [facility]. BloodCx + coagulase negative staph likely contaminant, repeat NGTD. Labs, Wbc 13.8, Hgb 13.6, Plt 141, Gluc 210, Cr 0.98, AST 44, ALT 50, CRP 130. CXR slight improvement bilateral infiltrates. Albuterol inhaler for shortness of breath. Will have RT attempt to try high flow O2 supplementation this morning. Pt received 1 dose Actemra yesterday, will give another dose today attempt to control Continue to monitor and follow up labs in the morning. Past Medical Family Social History Past Med/Fam/Surg Hx: No changes since H&P Allergies: Allergies codeine Allergy (Verified 06/05/18 18:22) hydrocodone Allergy (Verified 06/19/19 16:28) levofloxacin [From Levaquin] Allergy (Verified 06/19/19 16:33) penicillin G Allergy (Verified 06/05/18 18:22) Sulfa (Sulfonamide Antibiotics) [SULFA] Allergy (Verified 06/05/18 18:22) tramadol Allergy (Verified 06/19/19 16:28) Review of Systems ROS: No change since H&P Vital Signs and I&O's Vital Signs: Temperature 98.3 F Pulse Rate [Left Radial] 118 Pulse Rate 134 Respiratory Rate 38 Blood Pressure [Left Arm] 164/77 Blood Pressure 136/59 O2 Sat by Pulse Oximetry 93 Intake and Output: Intake & Output 06/22/19 06/23/19 06/24/19 06/25/19 23:59 23:59 23:59 23:59 Intake Total 1928 / 1928 2054 / 2054 3046 / 3046 839 / 839 Output Total 4400 / 4400 2750 / 2750 4450 / 4450 1000 / 1000 Balance -2472 / -2472 -696 / -696 -1404 / -1404 -161 / -161 Physical Exam Oriented: Normal Eyes: Normal Ear: Normal Nose: Normal Throat: Normal Respiratory: Rales (improved, minimal ) Cardiovascular: Normal : Normal Auscultation: Bowel Sounds: Normal Tenderness: Normal Skin: Normal Musculoskeletal: Normal Psychiatric: Normal Speech Pattern: Clear and Appropriate Laboratory and Diagnostics Result Diagrams: 06/25/19 05:13 06/25/19 05:13 Labs: 06/19/19 16:15 Blood Blood Culture - Final 06/22/19 09:16 Blood Blood Culture - Preliminary 06/22/19 09:10 Blood Blood Culture - Preliminary 06/19/19 16:20 Blood Blood Culture - Final Laboratory WBC 13.8 X10^3/uL (3.6-10.0) H 06/25/19 05:13 RBC 6.05 X10^6/uL (3.5-5.4) H 06/25/19 05:13 Hgb 13.6 g/dL (12.0-16.0) 06/25/19 05:13 Hct 42.0 % (36.0-47.0) 06/25/19 05:13 MCV 69.4 fL (80.0-100.0) L 06/25/19 05:13 MCH 22.4 pg (27.0-34.0) L 06/25/19 05:13 MCHC 32.3 g/dL (33.0-35.0) L 06/25/19 05:13 RDW 15.5 % (11.6-16.5) 06/25/19 05:13 Plt Count 141 X10^3/uL (150.0-450.0) L 06/25/19 05:13 Plt Count Comment Adequate (ADEQUATE) 06/25/19 05:13 MPV 9.4 fL (7.4-11.0) 06/25/19 05:13 Neut % (Auto) 92.9 % (42.0-75.0) H 06/25/19 05:13 Lymph % (Auto) 3.9 % (21.0-51.0) L 06/25/19 05:13 [place] % (Auto) 2.8 % (0.0-13.0) 06/25/19 05:13 Eos % (Auto) 0.3 % (0.9-2.9) L 06/25/19 05:13 Baso % (Auto) 0.1 % (0.2-1.0) L 06/25/19 05:13 Neut # (Auto) 12.8 x10^3/uL (2.2-4.8) H 06/25/19 05:13 Lymph # (Auto) 0.5 X10^3/uL (1.3-2.9) L 06/25/19 05:13 [place] # (Auto) 0.4 x10^3/uL (0.3-0.8) 06/25/19 05:13 Eos # (Auto) 0.0 x10^3/uL (0.0-0.2) 06/25/19 05:13 Baso # (Auto) 0.0 X10^3/uL (0.0-0.1) 06/25/19 05:13 Absolute Nucleated RBC 0.1 /100WBC 06/25/19 05:13 Total Counted 100 06/25/19 05:13 Neutrophils % (Manual) 82 % (39-76) H 06/25/19 05:13 Band Neutrophils % 3 % (0-10) 06/22/19 05:42 Lymphocytes % (Manual) 17 % (13-43) 06/25/19 05:13 Monocytes % (Manual) 1 % (4-9) L 06/25/19 05:13 Giant Platelets Few 06/23/19 05:42 Plt Morphology Comment Normal (NORMAL) 06/25/19 05:13 RBC Morphology Abnormal (NORMAL) A 06/25/19 05:13 Hypochromasia 1+ A 06/25/19 05:13 Microcytosis 1+ A 06/25/19 05:13 PT 13.0 SECONDS (11.8-14.3) 06/19/19 16:20 INR Target Range - 06/19/19 16:20 INR 1.01 (0.8-1.3) 06/19/19 16:20 D-Dimer > 5000 ng/mL (0-400) H* 06/24/19 05:25 Sample Site Rr 06/19/19 18:11 ABG pH 7.470 (7.35-7.45) H 06/19/19 18:11 ABG pCO2 33.0 mmHg (35.0-45.0) L 06/19/19 18:11 ABG pO2 88.0 mmHg (80.0-100.0) 06/19/19 18:11 ABG HCO3 24.0 mmol/L (22-26) 06/19/19 18:11 ABG O2 Saturation 97.0 % (90-100) 06/19/19 18:11 ABG Base Excess 0.8 mmol/L (-2.0-2.0) 06/19/19 18:11 Albaro Test Pos 06/19/19 18:11 A-a Gradient 70.0 mmHg 06/19/19 18:11 FiO2 28.0 06/19/19 18:11 Blood Gas Comments Carolyne well gmb 06/19/19 18:11 Sodium 134 mmol/L (136-145) L 06/25/19 05:13 Corrected Sodium 137 mmol/L (136-145) 06/25/19 05:13 Potassium 3.5 mmol/L (3.5-5.1) 06/25/19 05:13 Chloride 98 mmol/L (98-107) 06/25/19 05:13 Carbon Dioxide 28.7 mmol/L (21-32) 06/25/19 05:13 BUN 12 mg/dL (7-18) 06/25/19 05:13 Creatinine 0.98 mg/dL (0.55-1.02) 06/25/19 05:13 Est GFR (MDRD) Af Amer > 60 (>60) 06/25/19 05:13 Est GFR (MDRD) Non-Af 59 (>60) 06/25/19 05:13 Glucose 210 mg/dL (65-99) H 06/25/19 05:13 Hemoglobin A1c 7.5 % 06/19/19 16:20 Lactic Acid 1.3 mmol/L (0.4-2.0) 06/19/19 22:38 Calcium 8.0 mg/dL (8.5-10.1) L 06/25/19 05:13 Corrected Calcium 9.5 mg/dL (8.5-10.1) 06/25/19 05:13 Phosphorus 3.0 mg/dL (2.6-4.7) 06/23/19 05:42 Magnesium 1.7 mg/dL (1.7-2.9) 06/25/19 05:13 Total Bilirubin 1.00 mg/dL (0.2-1.0) 06/25/19 05:13 AST 44 Units/L (15-37) H 06/25/19 05:13 ALT 50 Units/L (12-78) 06/25/19 05:13 Alkaline Phosphatase 111 Units/L (46-116) 06/25/19 05:13 Creatine Kinase 88 Units/L (26-192) 06/19/19 16:20 CK-MB (CK-2) < 1.0 ng/mL (0-4.0) 06/19/19 16:20 CK/CKMB % Calc 1.1 % (<4) 06/19/19 16:20 Troponin I < 0.02 ng/mL (0-1.5) 06/19/19 16:20 C-Reactive Protein 130.50 mg/L (0-3.0) H 06/25/19 05:13 Total Protein 6.2 g/dL (6.4-8.2) L 06/25/19 05:13 Albumin 2.1 g/dL (3.4-5.0) L 06/25/19 05:13 Globulin 4.1 g/dL (2.5-4.5) 06/25/19 05:13 Albumin/Globulin Ratio 0.5 Ratio (1.1-2.1) L 06/25/19 05:13 Amylase 38 Units/L (25-115) 06/20/19 04:24 Lipase 268 Units/L (73-393) 06/20/19 04:24 TSH 3rd Generation 1.745 uIU/mL (0.358-3.74) 06/19/19 16:20 Specimen Type Catherized urine 06/23/19 16:07 Urine Color Straw (YELLOW) 06/23/19 16:07 Urine Appearance Hazy (CLEAR) 06/23/19 16:07 Urine pH 8.0 (5.0 - 8.0) 06/23/19 16:07 Ur Specific [place] 1.010 (1.000-1.030) 06/23/19 16:07 Urine Protein 2+ (NEGATIVE) 06/23/19 16:07 Urine Glucose (UA) 2+ (NEGATIVE) 06/23/19 16:07 Urine Ketones Negative (NEGATIVE) 06/23/19 16:07 Urine Occult Blood 1+ (NEGATIVE) 06/23/19 16:07 Urine Nitrite Negative (NEGATIVE) 06/23/19 16:07 Urine Bilirubin Negative (NEGATIVE) 06/23/19 16:07 Urine Urobilinogen Normal (NORMAL) 06/23/19 16:07 Ur Leukocyte Esterase Negative (NEGATIVE) 06/23/19 16:07 Urine RBC 0-2 /HPF (0-3) 06/23/19 16:07 Urine WBC 0-2 /HPF (0-5) 06/23/19 16:07 Ur Squamous Epith Cells Rare /HPF (NEGATIVE) 06/23/19 16:07 Amorphous Sediment 1+ /HPF (NEGATIVE) 06/19/19 16:09 Urine Bacteria Trace /HPF (NEGATIVE) 06/23/19 16:07 Hyaline Casts Moderate /LPF (NEGATIVE) 06/19/19 16:09 Granular Casts Few /LPF (NEGATIVE) 06/19/19 16:09 Fine Granular Casts Few /LPF (NEGATIVE) 06/19/19 16:09 Urine Mucus Rare /HPF (NEGATIVE) 06/23/19 16:07 Ur Culture Indicated? No/not indicated 06/23/19 16:07 Influenza Type A (PCR) Negative (NEGATIVE) 06/19/19 23:05 Influenza Type B (PCR) Negative (NEGATIVE) 06/19/19 23:05 Mycoplasma pneumon IgG Negative (NEGATIVE) 06/19/19 16:30 Miscellaneous Test Covid 19 06/19/19 18:20 Plan (1) COVID-19 virus infection: Status: Acute Plan: Positive test confirmed. Pneumonia protocol Continue plaquenil. Will give actemra today. (2) Bilateral pneumonia: Status: Acute Plan: Pneumonia protocol. (3) Lactic acidosis: Status: Acute Plan: Resolved (4) Hypertension: Status: Inactive Plan: Continue antihypertensives. (5) Diabetes mellitus: Status: Acute Plan: SSI (6) VEL (acute kidney injury): Status: Acute Plan: Resolved (7) Hypomagnesemia: Status: Acute Plan: Per protocol (8) Hypokalemia: Status: Acute Plan: Per protocol
[2019-06-25] MEDS ORDERED: ATIVAN INJ 2 MG VIAL IVP ONE ×2 (10:52→14:42)
[2019-06-25] MEDS ORDERED: ATIVAN TAB 0.5 MG PO PRN (10:55)
[2019-06-25 14:45] LABS: ABG BASE EXCESS 3.7 mmol/L (-2.0-2.0); ABG HCO3 25.7 mmol/L (22-26)
[2019-06-25] MEDS ORDERED: DIPRIVAN PREMIX 1 GRAM IV 1,000 MG/100 ML VIAL ONE (17:07)
[2019-06-25] MEDS ORDERED: VERSED ONE (17:08)
[2019-06-25] MEDS ORDERED: DIPRIVAN VIAL 20 ML ONE (17:08)
[2019-06-25] MEDS ORDERED: QUELICIN (OR ANECTINE) ONE (17:10)
[2019-06-25] MEDS ORDERED: NS 100 ML IV 100 ML IV ONE (17:12)
--- NOTE | 2019-06-25 17:16 | W.DIS.FURT ---
Summary of Discharge Discharge Summary of Date Date of Exam: 06/25/19 Admission Date Date of Admission: 06/19/19 Admission Diagnosis Patient Problems (Updated 06/23/19 @ 12:06 by Savage Perea) Hypokalemia (Acute) E87.6 COVID-19 virus infection (Acute) U07.1 VEL (acute kidney injury) (Acute) N17.9 Hypomagnesemia (Acute) E83.42 Diabetes mellitus (Acute) E11.9 Lactic acidosis (Acute) E87.2 Bilateral pneumonia (Acute) J18.9 Pneumonia (Acute) J18.9 Hospital Course: Pt is a 73 yo f pmhx HTN, DMT2, admitted for COVID-19 pneumonia. She was treated with a protocol of Plaquenil, Azithromycin, Actemra x 2 doses, IV solumedrol, Zinc, Vit C, Thiamine, IVF@KVO. Serial CXR showing bilateral pulmonary infiltrates. Pt respiratory status appeared to slowly improve until yesterday when her respiratory status started to worsen, w/ increasing oxygen requirement. Pt today appeared to have significant difficulty in respiratory effort. She was placed on HF at 50L/min, [id number]%, w/ ABG: pH:7.54, pCO2 30, pO2 47, HCO3 25, SpO2 88%. She remained tachypnic w/ RR 50s. Discussed w/ pt and daughters plan of care which includes need for intubation and mechanical ventilation. Pt and family agreed w/ plan of care. Pt was intubated, placed on mechanical ventilation, and transferred to ICU unit at [place], [place] via ambulance for Acute Respiratory Failure and ARDS. Vital Signs: Vital Signs (72 hours) 06/22/19 18:00 06/22/19 18:22 06/22/19 19:00 Temperature Pulse Rate 109 H 105 H Respiratory Rate 23 23 20 Blood Pressure 161/81 141/69 O2 Sat by Pulse Oximetry 91 L 91 L 06/22/19 19:22 06/22/19 20:00 06/22/19 21:00 Temperature 98.3 F Pulse Rate 115 H 110 H Respiratory Rate 24 35 H 37 H Blood Pressure 148/77 139/69 O2 Sat by Pulse Oximetry 93 L 92 L 06/22/19 21:17 06/22/19 22:00 06/22/19 23:00 Temperature Pulse Rate 104 H 117 H 104 H Respiratory Rate 23 28 H Blood Pressure 173/95 140/82 O2 Sat by Pulse Oximetry 92 L 95 98 06/23/19 00:00 06/23/19 01:00 06/23/19 02:00 Temperature 98.4 F Pulse Rate 96 H 93 H 94 H Respiratory Rate 22 26 H 27 H Blood Pressure 133/79 125/55 135/60 O2 Sat by Pulse Oximetry 100 100 100 06/23/19 03:00 06/23/19 04:00 06/23/19 04:29 Temperature 98.4 F Pulse Rate 92 H 92 H Respiratory Rate 23 25 H 24 Blood Pressure 139/68 138/66 O2 Sat by Pulse Oximetry 100 99 06/23/19 05:00 06/23/19 05:29 06/23/19 06:00 Temperature Pulse Rate 105 H 101 H Respiratory Rate 26 H 20 23 Blood Pressure 147/79 146/74 O2 Sat by Pulse Oximetry 95 100 06/23/19 07:00 06/23/19 07:01 06/23/19 08:01 Temperature 98.1 F Pulse Rate 101 H 113 H Respiratory Rate 30 H 29 H Blood Pressure 134/73 158/75 O2 Sat by Pulse Oximetry 100 06/23/19 09:13 06/23/19 10:00 06/23/19 11:05 Temperature Pulse Rate 102 H 101 H 103 H Respiratory Rate 26 H 31 H 32 H Blood Pressure 148/75 127/86 164/77 O2 Sat by Pulse Oximetry 98 97 06/23/19 12:00 06/23/19 13:00 06/23/19 14:00 Temperature 98.4 F Pulse Rate 98 H 104 H 109 H Respiratory Rate 37 H 36 H 38 H Blood Pressure 144/67 133/68 139/76 O2 Sat by Pulse Oximetry 93 L 06/23/19 15:00 06/23/19 16:00 06/23/19 17:00 Temperature Pulse Rate 102 H 109 H 123 H Respiratory Rate 43 H 41 H 38 H Blood Pressure 152/70 144/62 161/77 O2 Sat by Pulse Oximetry 90 L 89 L 79 L 06/23/19 18:00 06/23/19 19:00 06/23/19 20:00 Temperature 99.3 F Pulse Rate 117 H 114 H 122 H Respiratory Rate 39 H 39 H 40 H Blood Pressure 157/77 143/64 147/76 O2 Sat by Pulse Oximetry 04/06/20 21:00 06/23/19 22:00 06/23/19 23:00 Temperature 97.3 F L Pulse Rate 118 H 113 H 109 H Respiratory Rate 36 H 44 H 57 H Blood Pressure 148/68 156/72 140/67 O2 Sat by Pulse Oximetry 88 L 95 91 L 06/24/19 00:00 06/24/19 01:00 06/24/19 02:00 Temperature Pulse Rate 105 H 107 H 97 H Respiratory Rate 51 H 50 H 43 H Blood Pressure 138/66 141/72 132/60 O2 Sat by Pulse Oximetry 95 94 L 97 06/24/19 03:00 06/24/19 04:00 06/24/19 05:00 Temperature 98 F Pulse Rate 95 H 101 H Respiratory Rate 44 H 27 H Blood Pressure 113/57 122/62 149/71 O2 Sat by Pulse Oximetry 95 97 06/24/19 05:50 06/24/19 06:00 06/24/19 06:50 Temperature Pulse Rate 100 H Respiratory Rate 30 H 36 H 20 Blood Pressure 146/82 O2 Sat by Pulse Oximetry 95 06/24/19 07:00 06/24/19 08:00 06/24/19 09:00 Temperature Pulse Rate 100 H 101 H 96 H Respiratory Rate 30 H 30 H 31 H Blood Pressure 148/87 156/78 160/77 O2 Sat by Pulse Oximetry 97 97 94 L 06/24/19 10:00 06/24/19 11:00 06/24/19 12:00 Temperature Pulse Rate 97 H 95 H 89 Respiratory Rate 35 H 39 H 46 H Blood Pressure 143/82 145/80 149/73 O2 Sat by Pulse Oximetry 82 L 91 L 93 L 06/24/19 13:00 06/24/19 13:01 06/24/19 14:00 Temperature Pulse Rate 101 H 101 H 93 H Respiratory Rate 30 H 32 H 30 H Blood Pressure 154/71 151/71 O2 Sat by Pulse Oximetry 87 L 88 L 91 L 06/24/19 15:00 06/24/19 16:00 06/24/19 16:01 Temperature Pulse Rate 92 H 94 H Respiratory Rate 32 H 34 H Blood Pressure 156/87 136/65 O2 Sat by Pulse Oximetry 95 95 06/24/19 17:00 06/24/19 18:00 06/24/19 18:29 Temperature 99.3 F Pulse Rate 92 H 107 H Respiratory Rate 32 H 31 H 27 H Blood Pressure 126/65 143/81 O2 Sat by Pulse Oximetry 90 L 89 L 06/24/19 19:00 06/24/19 20:00 06/24/19 20:15 Temperature 99.6 F Pulse Rate 105 H 109 H Respiratory Rate 33 H 40 H 35 H Blood Pressure 137/65 143/67 O2 Sat by Pulse Oximetry 92 L 95 06/24/19 20:28 06/24/19 21:00 06/24/19 22:00 Temperature 99 F Pulse Rate 100 H 112 H 129 H Respiratory Rate 42 H 47 H Blood Pressure 155/75 O2 Sat by Pulse Oximetry 97 94 L 92 L 06/24/19 22:01 06/24/19 23:00 06/25/19 00:00 Temperature Pulse Rate 129 H 123 H 119 H Respiratory Rate 43 H 38 H 42 H Blood Pressure 164/76 160/75 156/78 O2 Sat by Pulse Oximetry 89 L 90 L 98 06/25/19 01:00 06/25/19 02:00 06/25/19 02:58 Temperature Pulse Rate 122 H Respiratory Rate 7 L 32 H Blood Pressure 141/68 150/69 O2 Sat by Pulse Oximetry 93 L 06/25/19 03:00 06/25/19 03:58 06/25/19 04:00 Temperature Pulse Rate 123 H 123 H Respiratory Rate 42 H 32 H 38 H Blood Pressure 137/71 135/68 O2 Sat by Pulse Oximetry 91 L 92 L 06/25/19 05:00 06/25/19 06:00 06/25/19 07:00 Temperature 98.3 F Pulse Rate 124 H 117 H 116 H Respiratory Rate 44 H 42 H 43 H Blood Pressure 138/74 139/66 147/70 O2 Sat by Pulse Oximetry 93 L 95 91 L 06/25/19 08:00 06/25/19 08:16 06/25/19 08:50 Temperature Pulse Rate 134 H 134 H 129 H Respiratory Rate 39 H 38 H 35 H Blood Pressure 134/68 136/59 142/80 O2 Sat by Pulse Oximetry 92 L 93 L 89 L 06/25/19 09:00 06/25/19 10:44 06/25/19 11:00 Temperature Pulse Rate 126 H 109 H 109 H Respiratory Rate 44 H 41 H 47 H Blood Pressure 119/57 O2 Sat by Pulse Oximetry 89 L 86 L 91 L 06/25/19 12:57 06/25/19 13:00 06/25/19 14:00 Temperature Pulse Rate 117 H 115 H 110 H Respiratory Rate 46 H 55 H 43 H Blood Pressure 134/78 141/70 123/64 O2 Sat by Pulse Oximetry 86 L 86 L 94 L 06/25/19 15:00 Temperature Pulse Rate 111 H Respiratory Rate 53 H Blood Pressure 130/69 O2 Sat by Pulse Oximetry 93 L Labs: Laboratory Last Values WBC 13.8 X10^3/uL (3.6-10.0) H 06/25/19 05:13 RBC 6.05 X10^6/uL (3.5-5.4) H 06/25/19 05:13 Hgb 13.6 g/dL (12.0-16.0) 06/25/19 05:13 Hct 42.0 % (36.0-47.0) 06/25/19 05:13 MCV 69.4 fL (80.0-100.0) L 06/25/19 05:13 MCH 22.4 pg (27.0-34.0) L 06/25/19 05:13 MCHC 32.3 g/dL (33.0-35.0) L 06/25/19 05:13 RDW 15.5 % (11.6-16.5) 06/25/19 05:13 Plt Count 141 X10^3/uL (150.0-450.0) L 06/25/19 05:13 Plt Count Comment Adequate (ADEQUATE) 06/25/19 05:13 MPV 9.4 fL (7.4-11.0) 06/25/19 05:13 Neut % (Auto) 92.9 % (42.0-75.0) H 06/25/19 05:13 Lymph % (Auto) 3.9 % (21.0-51.0) L 06/25/19 05:13 [place] % (Auto) 2.8 % (0.0-13.0) 06/25/19 05:13 Eos % (Auto) 0.3 % (0.9-2.9) L 06/25/19 05:13 Baso % (Auto) 0.1 % (0.2-1.0) L 06/25/19 05:13 Neut # (Auto) 12.8 x10^3/uL (2.2-4.8) H 06/25/19 05:13 Lymph # (Auto) 0.5 X10^3/uL (1.3-2.9) L 06/25/19 05:13 [place] # (Auto) 0.4 x10^3/uL (0.3-0.8) 06/25/19 05:13 Eos # (Auto) 0.0 x10^3/uL (0.0-0.2) 06/25/19 05:13 Baso # (Auto) 0.0 X10^3/uL (0.0-0.1) 06/25/19 05:13 Absolute Nucleated RBC 0.1 /100WBC 06/25/19 05:13 Total Counted 100 06/25/19 05:13 Neutrophils % (Manual) 82 % (39-76) H 06/25/19 05:13 Band Neutrophils % 3 % (0-10) 06/22/19 05:42 Lymphocytes % (Manual) 17 % (13-43) 06/25/19 05:13 Monocytes % (Manual) 1 % (4-9) L 06/25/19 05:13 Giant Platelets Few 06/23/19 05:42 Plt Morphology Comment Normal (NORMAL) 06/25/19 05:13 RBC Morphology Abnormal (NORMAL) A 06/25/19 05:13 Hypochromasia 1+ A 06/25/19 05:13 Microcytosis 1+ A 06/25/19 05:13 PT 13.0 SECONDS (11.8-14.3) 06/19/19 16:20 INR Target Range - 06/19/19 16:20 INR 1.01 (0.8-1.3) 06/19/19 16:20 D-Dimer > 5000 ng/mL (0-400) H* 06/24/19 05:25 Sample Site [facility] 06/25/19 14:36 ABG pH 7.540 (7.35-7.45) H 06/25/19 14:36 ABG pCO2 30.0 mmHg (35.0-45.0) L 06/25/19 14:36 ABG pO2 47.0 mmHg (80.0-100.0) L* 06/25/19 14:36 ABG HCO3 25.7 mmol/L (22-26) 06/25/19 14:36 ABG O2 Saturation 88.0 % (90-100) L 06/25/19 14:36 ABG Base Excess 3.7 mmol/L (-2.0-2.0) H 06/25/19 14:36 Albaro Test N/a 06/25/19 14:36 A-a Gradient 571.0 mmHg 06/25/19 14:36 FiO2 92.0 06/25/19 14:36 Blood Gas Comments Pt jose well elj gmb 06/25/19 14:36 Sodium 134 mmol/L (136-145) L 06/25/19 05:13 Corrected Sodium 137 mmol/L (136-145) 06/25/19 05:13 Potassium 3.5 mmol/L (3.5-5.1) 06/25/19 05:13 Chloride 98 mmol/L (98-107) 06/25/19 05:13 Carbon Dioxide 28.7 mmol/L (21-32) 06/25/19 05:13 BUN 12 mg/dL (7-18) 06/25/19 05:13 Creatinine 0.98 mg/dL (0.55-1.02) 06/25/19 05:13 Est GFR (MDRD) Af Amer > 60 (>60) 06/25/19 05:13 Est GFR (MDRD) Non-Af 59 (>60) 06/25/19 05:13 Glucose 210 mg/dL (65-99) H 06/25/19 05:13 Hemoglobin A1c 7.5 % 06/19/19 16:20 Lactic Acid 1.3 mmol/L (0.4-2.0) 06/19/19 22:38 Calcium 8.0 mg/dL (8.5-10.1) L 06/25/19 05:13 Corrected Calcium 9.5 mg/dL (8.5-10.1) 06/25/19 05:13 Phosphorus 3.0 mg/dL (2.6-4.7) 06/23/19 05:42 Magnesium 1.7 mg/dL (1.7-2.9) 06/25/19 05:13 Total Bilirubin 1.00 mg/dL (0.2-1.0) 06/25/19 05:13 AST 44 Units/L (15-37) H 06/25/19 05:13 ALT 50 Units/L (12-78) 06/25/19 05:13 Alkaline Phosphatase 111 Units/L (46-116) 06/25/19 05:13 Creatine Kinase 88 Units/L (26-192) 06/19/19 16:20 CK-MB (CK-2) < 1.0 ng/mL (0-4.0) 06/19/19 16:20 CK/CKMB % Calc 1.1 % (<4) 06/19/19 16:20 Troponin I < 0.02 ng/mL (0-1.5) 06/19/19 16:20 C-Reactive Protein 130.50 mg/L (0-3.0) H 06/25/19 05:13 Total Protein 6.2 g/dL (6.4-8.2) L 06/25/19 05:13 Albumin 2.1 g/dL (3.4-5.0) L 06/25/19 05:13 Globulin 4.1 g/dL (2.5-4.5) 06/25/19 05:13 Albumin/Globulin Ratio 0.5 Ratio (1.1-2.1) L 06/25/19 05:13 Amylase 38 Units/L (25-115) 06/20/19 04:24 Lipase 268 Units/L (73-393) 06/20/19 04:24 TSH 3rd Generation 1.745 uIU/mL (0.358-3.74) 06/19/19 16:20 Specimen Type Catherized urine 06/23/19 16:07 Urine Color Straw (YELLOW) 06/23/19 16:07 Urine Appearance Hazy (CLEAR) 06/23/19 16:07 Urine pH 8.0 (5.0 - 8.0) 06/23/19 16:07 Ur Specific [place] 1.010 (1.000-1.030) 06/23/19 16:07 Urine Protein 2+ (NEGATIVE) 06/23/19 16:07 Urine Glucose (UA) 2+ (NEGATIVE) 06/23/19 16:07 Urine Ketones Negative (NEGATIVE) 06/23/19 16:07 Urine Occult Blood 1+ (NEGATIVE) 06/23/19 16:07 Urine Nitrite Negative (NEGATIVE) 06/23/19 16:07 Urine Bilirubin Negative (NEGATIVE) 06/23/19 16:07 Urine Urobilinogen Normal (NORMAL) 06/23/19 16:07 Ur Leukocyte Esterase Negative (NEGATIVE) 06/23/19 16:07 Urine RBC 0-2 /HPF (0-3) 06/23/19 16:07 Urine WBC 0-2 /HPF (0-5) 06/23/19 16:07 Ur Squamous Epith Cells Rare /HPF (NEGATIVE) 06/23/19 16:07 Amorphous Sediment 1+ /HPF (NEGATIVE) 06/19/19 16:09 Urine Bacteria Trace /HPF (NEGATIVE) 06/23/19 16:07 Hyaline Casts Moderate /LPF (NEGATIVE) 06/19/19 16:09 Granular Casts Few /LPF (NEGATIVE) 06/19/19 16:09 Fine Granular Casts Few /LPF (NEGATIVE) 06/19/19 16:09 Urine Mucus Rare /HPF (NEGATIVE) 06/23/19 16:07 Ur Culture Indicated? No/not indicated 06/23/19 16:07 Influenza Type A (PCR) Negative (NEGATIVE) 06/19/19 23:05 Influenza Type B (PCR) Negative (NEGATIVE) 06/19/19 23:05 Mycoplasma pneumon IgG Negative (NEGATIVE) 06/19/19 16:30 Miscellaneous Test Covid 19 06/19/19 18:20 Reason For Visit: PNEUMONIA Discharge Date Discharge Date: 06/25/19 Discharge Diagnosis All Active Problems (Updated 06/23/19 @ 12:06 by Savage Perea) Hypokalemia (Acute) COVID-19 virus infection (Acute) VEL (acute kidney injury) (Acute) Hypomagnesemia (Acute) Diabetes mellitus (Acute) Lactic acidosis (Acute) Bilateral pneumonia (Acute) Pneumonia (Acute) Arthritis (Chronic) Plan of Treatment: Continue with present treatment and follow up plan. Pt is to keep follow up appointment as instructed and take medications as ordered. Discharge Medications Discharge Medications: codeine Allergy (Verified 06/05/18 18:22) hydrocodone Allergy (Verified 06/19/19 16:28) levofloxacin [From Levaquin] Allergy (Verified 06/19/19 16:33) penicillin G Allergy (Verified 06/05/18 18:22) Sulfa (Sulfonamide Antibiotics) [SULFA] Allergy (Verified 06/05/18 18:22) tramadol Allergy (Verified 06/19/19 16:28) CONTINUE taking the following medications garlic 1,000 mg PO DAILY 06/19/19 [History] metoprolol succinate 50 mg PO DAILY 06/19/19 [History] Discharge Disposition Discharge Disposition: Transfer [place], [place] Discharge Condition: Guarded
[2019-06-25] MEDS ORDERED: NORCURON INJ 10 MG VIAL ONE (17:17)
[2019-06-25] MEDS ORDERED: VERSED 100 MG in NS 100 ML IV 80 ML IV PRN (17:36)
[2019-06-25] MEDS ORDERED: DIPRIVAN PREMIX 1 GRAM IV 1,000 MG/100 ML VIAL IV PRN (17:38)
--- NOTE | 2019-06-25 18:09 | DR.UPDATE ---
H&P Update History and Physical Update: History and Physical reviewed and patient examined. Changes noted: NO Yes with the following:agree with H&P, pt examined. will intubate for covid19 H&P Reviewed: Yes Patient was examined?: Yes Procedures (ALL) - Intubation Time out performed: Yes Sedative: other (diprivan 150mg) paralytic: succinylchline (100mg. norcuron 10mg after 5 minutes) Laryngoscope: fiber optic video scope ET tube size: 7.5 Tube secured depth: 21 Tube secured location: teeth Intubation complications: none (cords easily visualized with glidescope 3)
--- NOTE | 2019-06-25 18:21 | RAD ---
HISTORYET TUBE PLACEMENT. Respiratory failure.STUDYCHEST, 1 VIEWCOMPARISONRadiograph from earlier the same dateFINDINGSThere has been interval placement of an endotracheal tube, terminating approximately 4 cm above the chase. There is stable positioning of the right jugular CVL. Bilateral lung infiltrates, worse within the right lower and left upper lobes are not significantly changed. No significant pleural effusion or pneumothorax.IMPRESSIONEndotracheal tube in satisfactory position.No significant change in the multifocal lung infiltrates.Electronically signed by: NAA RODRIGEZ (Jun 25, 2019 18:20:16)
[2019-06-25 18:48] VITALS: BP 105/64
[2019-06-25] MEDS ORDERED: AMBIEN PO SCH (21:00)
[2019-06-25] MEDS ORDERED: PLAQUENIL PO SCH (21:00)
--- NOTE | 2019-06-26 11:21 | PCM.PROG ---
Progress Note Progress Note for Day of Date of Exam: 06/20/19 Subjective Subjective: Pt is a 73 yo f pmhx HTN, DMT2, admitted for pneumonia. She states that she is feeling a little better. CXR this morning did not show any changes from prior. She is still requiring supplemental O2. She is on Zithromax, Plaquenil, IV Solumedrol, Zinc, Vit C, thiamine. IVF decreased to KVO. COVID-19 and BloodCx results are pending. Continue to monitor and follow up labs in the morning. Past Medical Family Social History Past Med/Fam/Surg Hx: No changes since H&P Allergies: Allergies codeine Allergy (Verified 06/05/18 18:22) hydrocodone Allergy (Verified 06/19/19 16:28) levofloxacin [From Levaquin] Allergy (Verified 06/19/19 16:33) penicillin G Allergy (Verified 06/05/18 18:22) Sulfa (Sulfonamide Antibiotics) [SULFA] Allergy (Verified 06/05/18 18:22) tramadol Allergy (Verified 06/19/19 16:28) Review of Systems ROS: No change since H&P Vital Signs and I&O's Vital Signs: Temperature 98.3 F Pulse Rate [Left Radial] 118 Pulse Rate 104 Respiratory Rate 17 Blood Pressure [Left Arm] 164/77 Blood Pressure 105/64 O2 Sat by Pulse Oximetry 100 Intake and Output: Intake & Output 06/23/19 06/24/19 06/25/19 06/26/19 23:59 23:59 23:59 23:59 Intake Total 2054 / 2054 3046 / 3046 1199 / 1199 Output Total 2750 / 2750 4450 / 4450 2100 / 2100 Balance -696 / -696 -1404 / -1404 -901 / -901 Physical Exam Oriented: Normal Eyes: Normal Ear: Normal Nose: Normal Throat: Normal Respiratory: Rales (improved, minimal ) Cardiovascular: Normal : Normal Auscultation: Bowel Sounds: Normal Tenderness: Normal Skin: Normal Musculoskeletal: Normal Psychiatric: Normal Speech Pattern: Clear and Appropriate Laboratory and Diagnostics Result Diagrams: 06/25/19 05:13 06/25/19 05:13 Labs: 06/19/19 16:15 Blood Blood Culture - Final 06/22/19 09:16 Blood Blood Culture - Preliminary 06/22/19 09:10 Blood Blood Culture - Preliminary 06/19/19 16:20 Blood Blood Culture - Final Laboratory WBC 13.8 X10^3/uL (3.6-10.0) H 06/25/19 05:13 RBC 6.05 X10^6/uL (3.5-5.4) H 06/25/19 05:13 Hgb 13.6 g/dL (12.0-16.0) 06/25/19 05:13 Hct 42.0 % (36.0-47.0) 06/25/19 05:13 MCV 69.4 fL (80.0-100.0) L 06/25/19 05:13 MCH 22.4 pg (27.0-34.0) L 06/25/19 05:13 MCHC 32.3 g/dL (33.0-35.0) L 06/25/19 05:13 RDW 15.5 % (11.6-16.5) 06/25/19 05:13 Plt Count 141 X10^3/uL (150.0-450.0) L 06/25/19 05:13 Plt Count Comment Adequate (ADEQUATE) 06/25/19 05:13 MPV 9.4 fL (7.4-11.0) 06/25/19 05:13 Neut % (Auto) 92.9 % (42.0-75.0) H 06/25/19 05:13 Lymph % (Auto) 3.9 % (21.0-51.0) L 06/25/19 05:13 [place] % (Auto) 2.8 % (0.0-13.0) 06/25/19 05:13 Eos % (Auto) 0.3 % (0.9-2.9) L 06/25/19 05:13 Baso % (Auto) 0.1 % (0.2-1.0) L 06/25/19 05:13 Neut # (Auto) 12.8 x10^3/uL (2.2-4.8) H 06/25/19 05:13 Lymph # (Auto) 0.5 X10^3/uL (1.3-2.9) L 06/25/19 05:13 [place] # (Auto) 0.4 x10^3/uL (0.3-0.8) 06/25/19 05:13 Eos # (Auto) 0.0 x10^3/uL (0.0-0.2) 06/25/19 05:13 Baso # (Auto) 0.0 X10^3/uL (0.0-0.1) 06/25/19 05:13 Absolute Nucleated RBC 0.1 /100WBC 06/25/19 05:13 Total Counted 100 06/25/19 05:13 Neutrophils % (Manual) 82 % (39-76) H 06/25/19 05:13 Band Neutrophils % 3 % (0-10) 06/22/19 05:42 Lymphocytes % (Manual) 17 % (13-43) 06/25/19 05:13 Monocytes % (Manual) 1 % (4-9) L 06/25/19 05:13 Giant Platelets Few 06/23/19 05:42 Plt Morphology Comment Normal (NORMAL) 06/25/19 05:13 RBC Morphology Abnormal (NORMAL) A 06/25/19 05:13 Hypochromasia 1+ A 06/25/19 05:13 Microcytosis 1+ A 06/25/19 05:13 PT 13.0 SECONDS (11.8-14.3) 06/19/19 16:20 INR Target Range - 06/19/19 16:20 INR 1.01 (0.8-1.3) 06/19/19 16:20 D-Dimer > 5000 ng/mL (0-400) H* 06/24/19 05:25 Sample Site [facility] 06/25/19 14:36 ABG pH 7.540 (7.35-7.45) H 06/25/19 14:36 ABG pCO2 30.0 mmHg (35.0-45.0) L 06/25/19 14:36 ABG pO2 47.0 mmHg (80.0-100.0) L* 06/25/19 14:36 ABG HCO3 25.7 mmol/L (22-26) 06/25/19 14:36 ABG O2 Saturation 88.0 % (90-100) L 06/25/19 14:36 ABG Base Excess 3.7 mmol/L (-2.0-2.0) H 06/25/19 14:36 Albaro Test N/a 06/25/19 14:36 A-a Gradient 571.0 mmHg 06/25/19 14:36 FiO2 92.0 06/25/19 14:36 Blood Gas Comments Pt jose well elj gmb 06/25/19 14:36 Sodium 134 mmol/L (136-145) L 06/25/19 05:13 Corrected Sodium 137 mmol/L (136-145) 06/25/19 05:13 Potassium 3.5 mmol/L (3.5-5.1) 06/25/19 05:13 Chloride 98 mmol/L (98-107) 06/25/19 05:13 Carbon Dioxide 28.7 mmol/L (21-32) 06/25/19 05:13 BUN 12 mg/dL (7-18) 06/25/19 05:13 Creatinine 0.98 mg/dL (0.55-1.02) 06/25/19 05:13 Est GFR (MDRD) Af Amer > 60 (>60) 06/25/19 05:13 Est GFR (MDRD) Non-Af 59 (>60) 06/25/19 05:13 Glucose 210 mg/dL (65-99) H 06/25/19 05:13 Hemoglobin A1c 7.5 % 06/19/19 16:20 Lactic Acid 1.3 mmol/L (0.4-2.0) 06/19/19 22:38 Calcium 8.0 mg/dL (8.5-10.1) L 06/25/19 05:13 Corrected Calcium 9.5 mg/dL (8.5-10.1) 06/25/19 05:13 Phosphorus 3.0 mg/dL (2.6-4.7) 06/23/19 05:42 Magnesium 1.7 mg/dL (1.7-2.9) 06/25/19 05:13 Total Bilirubin 1.00 mg/dL (0.2-1.0) 06/25/19 05:13 AST 44 Units/L (15-37) H 06/25/19 05:13 ALT 50 Units/L (12-78) 06/25/19 05:13 Alkaline Phosphatase 111 Units/L (46-116) 06/25/19 05:13 Creatine Kinase 88 Units/L (26-192) 06/19/19 16:20 CK-MB (CK-2) < 1.0 ng/mL (0-4.0) 06/19/19 16:20 CK/CKMB % Calc 1.1 % (<4) 06/19/19 16:20 Troponin I < 0.02 ng/mL (0-1.5) 06/19/19 16:20 C-Reactive Protein 130.50 mg/L (0-3.0) H 06/25/19 05:13 Total Protein 6.2 g/dL (6.4-8.2) L 06/25/19 05:13 Albumin 2.1 g/dL (3.4-5.0) L 06/25/19 05:13 Globulin 4.1 g/dL (2.5-4.5) 06/25/19 05:13 Albumin/Globulin Ratio 0.5 Ratio (1.1-2.1) L 06/25/19 05:13 Amylase 38 Units/L (25-115) 06/20/19 04:24 Lipase 268 Units/L (73-393) 06/20/19 04:24 TSH 3rd Generation 1.745 uIU/mL (0.358-3.74) 06/19/19 16:20 Specimen Type Catherized urine 06/23/19 16:07 Urine Color Straw (YELLOW) 06/23/19 16:07 Urine Appearance Hazy (CLEAR) 06/23/19 16:07 Urine pH 8.0 (5.0 - 8.0) 06/23/19 16:07 Ur Specific [place] 1.010 (1.000-1.030) 06/23/19 16:07 Urine Protein 2+ (NEGATIVE) 06/23/19 16:07 Urine Glucose (UA) 2+ (NEGATIVE) 06/23/19 16:07 Urine Ketones Negative (NEGATIVE) 06/23/19 16:07 Urine Occult Blood 1+ (NEGATIVE) 06/23/19 16:07 Urine Nitrite Negative (NEGATIVE) 06/23/19 16:07 Urine Bilirubin Negative (NEGATIVE) 06/23/19 16:07 Urine Urobilinogen Normal (NORMAL) 06/23/19 16:07 Ur Leukocyte Esterase Negative (NEGATIVE) 06/23/19 16:07 Urine RBC 0-2 /HPF (0-3) 06/23/19 16:07 Urine WBC 0-2 /HPF (0-5) 06/23/19 16:07 Ur Squamous Epith Cells Rare /HPF (NEGATIVE) 06/23/19 16:07 Amorphous Sediment 1+ /HPF (NEGATIVE) 06/19/19 16:09 Urine Bacteria Trace /HPF (NEGATIVE) 06/23/19 16:07 Hyaline Casts Moderate /LPF (NEGATIVE) 06/19/19 16:09 Granular Casts Few /LPF (NEGATIVE) 06/19/19 16:09 Fine Granular Casts Few /LPF (NEGATIVE) 06/19/19 16:09 Urine Mucus Rare /HPF (NEGATIVE) 06/23/19 16:07 Ur Culture Indicated? No/not indicated 06/23/19 16:07 Influenza Type A (PCR) Negative (NEGATIVE) 06/19/19 23:05 Influenza Type B (PCR) Negative (NEGATIVE) 06/19/19 23:05 Mycoplasma pneumon IgG Negative (NEGATIVE) 06/19/19 16:30 Miscellaneous Test Covid 19 06/19/19 18:20 Plan (1) COVID-19 virus infection: Status: Acute Plan: Pneumonia protocol Continue plaquenil. (2) Bilateral pneumonia: Status: Acute Plan: Pneumonia protocol. (3) Lactic acidosis: Status: Acute Plan: Resolved (4) Hypertension: Status: Inactive Plan: Continue antihypertensives. (5) Diabetes mellitus: Status: Acute Plan: SSI (6) VEL (acute kidney injury): Status: Acute Plan: Resolved (7) Hypomagnesemia: Status: Acute Plan: Per protocol (8) Hypokalemia: Status: Acute Plan: Per protocol
== END 2019-06-25 18:45 | disposition short-term general hospital (02) | DRG 177 ==
LOC: ER 15:33 → ICU 17:27
PROVIDERS: ADMIT Family Medicine; ATTEND Family Medicine
DX: E11.65 Type 2 diabetes mellitus with hyperglycemia; N17.8 Other acute kidney failure; U07.1 COVID-19; J96.00 Acute respiratory failure, unspecified whether with hypoxia or hypercapnia; R94.31 Abnormal electrocardiogram [ECG] [EKG]; E83.42 Hypomagnesemia; J12.89 Other viral pneumonia; E87.6 Hypokalemia; I10 Essential (primary) hypertension